=== PATIENT | female | born 1960 | race Caucasian/White ===

== ENCOUNTER 2017-04-24 20:32 | Emergency (ER) | payer MEDICAID, OTHER ==
[2017-04-24] MEDS ORDERED: HYDROmorphone 1 MG/ML Syringe IVPUSH ONE (21:23)
[2017-04-24] MEDS ORDERED: diphenhydrAMINE 50 MG/ML SDV IVPUSH ONE (21:24)
[2017-04-24] MEDS ORDERED: Sodium Chloride 0.9% 1,000 ML IV SCH (21:30)
[2017-04-24] MEDS ORDERED: Sodium Chloride 0.9% 10 ML Syringe FLUSH PRN (21:50)
[2017-04-24] MEDS ORDERED: Iopamidol 612 MG/ML 100 ML Bottle IV PRN (21:50)
[2017-04-24 22:30] VITALS: BP 102/56
--- NOTE | 2017-04-24 23:03 | EDM.PDOC ---
ED HPI GENERAL MEDICAL PROBLEM - General Chief Complaint: Flank Pain Stated Complaint: L RIB PAIN Time Seen by Provider: 04/24/17 21:16 Source of Information: Reports: Patient History Limitations: Reports: No Limitations - History of Present Illness INITIAL COMMENTS - FREE TEXT/NARRATIVE: History of present illness: [56-year-old female who works that he goes in the [employer] department bumped into something rather hard yesterday injuring her left upper quadrant of her abdomen and left lower rib cage. She is presenting with severe pain of the left upper quadrant and left lower with cage. Today she went to [place] because her father had a biopsy that she wondered be with him at. She notes that during the day every time she got up she felt lightheaded and just didn't feel right. Her appetite has not been good either. She is a smoker. She said no nausea vomiting diarrhea she's not noted any blood in her stools or her urine.] Review of systems: As per history of present illness and below otherwise all systems reviewed and negative. Past medical history: As per history of present illness and as reviewed below otherwise noncontributory. Surgical history: As per history of present illness and as reviewed below otherwise noncontributory. Social history: No reported history of drug or alcohol abuse. Family history: As per history of present illness and as reviewed below otherwise noncontributory. Physical exam: HEENT: Atraumatic, normocephalic, Lungs: Clear to auscultation, breath sounds equal bilaterally, chest nontender. Heart: S1S2, regular, negative for clicks, rubs, or JVD. Abdomen: She has tenderness to palpation in her left upper quadrant and also the left lower rib cage area. Bowel sounds are hypoactive. She is very slow to move and lay down and seems to be in a lot of pain. Extremities: Atraumatic, negative for cords or calf pain. Neurovascular unremarkable. Neuro: Awake, alert, oriented. Exam nonfocal. Diagnostics: [CBC complete metabolic panel UA were obtained as as well as a abdominal pelvic CT with IV contrast. My concern was her spleen and that study was completely negative including the bony elements of her lower rib cage that were seen.] Therapeutics: [She received IV fluids and IV Dilaudid] Impression: [Contusion of the left lower rib cage and left upper quadrant of her abdomen] Plan: [We'll send her out with [facility] for pain control and she will follow-up with her primary care provider. 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 A workers injury report will need to be filled out and filed but she doesn't have that with her.] Definitive disposition and diagnosis as appropriate pending reevaluation and review of above. left rib Pain Score (Numeric/FACES): 7 - Related Data Allergies Allergy/AdvReac Type Severity Reaction Status Date / Time venom-honey bee Allergy Severe Facial Verified 04/24/17 20:45 [bee venom (honey bee)] Swelling meperidine HCl [From Demerol] Allergy Unknown Hives Verified 04/24/17 20:45 Home Meds: Home Meds Albuterol [Proair HFA] 2 puff INH ASDIRECTED PRN 11/28/13 [History] Cyclobenzaprine [Flexeril] 10 mg PO TID PRN 07/25/14 [History] Omeprazole Magnesium [Prilosec Otc] 20 mg PO DAILY PRN 10/18/14 [History] tiZANidine [Zanaflex] 4 mg PO Q6H PRN 10/18/14 [History] EPINEPHrine [Epinephrine] 0.3 ml IM ONETIME PRN 02/24/15 [History] Lidocaine 5% [Lidoderm 5%] 3 patch TOP Q24H 02/24/15 [History] Naproxen Sodium [Aleve] 440 mg PO DAILY PRN 02/24/15 [History] Lisinopril 10 mg PO DAILY 07/18/15 [History] Polyethylene Glycol 3350 [MiraLAX] 1 dose PO ASDIRECTED 07/18/15 [History] atorvaSTATin [Lipitor] 40 mg PO BEDTIME 07/18/15 [History] Calcium Carb & Citrate/Vit D3 [Calcium + D3 ER Tablet] 1 tab PO DAILY 07/29/15 [ History] Diclofenac Sodium [Voltaren 1%] 1 applic TP QID 07/29/15 [History] Etodolac [Lodine] 500 mg PO BID 07/29/15 [History] Ibuprofen [Advil] 400 mg PO ASDIRECTED 07/29/15 [History] Past Medical History Cardiovascular History: Reports: Afib, Hypertension Respiratory History: Reports: Asthma, COPD, Pneumonia, Recurrent Gastrointestinal History: Reports: GERD, Irritable Bowel Syndrome [employer]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[employer] History: Reports: Fibroids, Musculoskeletal History: Reports: Arthritis, Back Pain, Chronic, Fibromyalgia, Osteoporosis Neurological History: Reports: Headaches, Chronic Psychiatric History: Reports: Anxiety, Depression, Mood Swings Dermatologic History: Reports: Benign Melanoma - Past Surgical History Cardiovascular Surgical History: Reports: Other (See Below) Other Cardiovascular Surgeries/Procedures: Angiogram 2014 GI Surgical History: Reports: Appendectomy, Cholecystectomy, Colonoscopy, Hernia , Abdominal, Other (See Below) Other GI Surgeries/Procedures: Abdominal mass under right rib 2014 removed Female Surgical History: Reports: Breast Biopsy, Salpingo-Oophorectomy, Tubal Ligation Social & Family History - Tobacco Use Smoking Status *Q: Current Every Day Smoker Years of Tobacco use: 30 Packs/Tins Daily: 0.5 Used Tobacco, but Quit: No Second Hand Smoke Exposure: No - Caffeine Use Caffeine Use: Reports: Soda - Alcohol Use Days Per Week of Alcohol Use: 0 - Recreational Drug Use Recreational Drug Use: No ED ROS GENERAL - Review of Systems Review Of Systems: ROS reveals no pertinent complaints other than HPI. ED EXAM, GI/ABD - Physical Exam Exam: See Below Course - Vital Signs Last Recorded V/S: Last Vital Signs Temp 36.4 C 04/24/17 22:29 Pulse 67 04/24/17 22:29 Resp 16 04/24/17 20:49 BP 102/56 L 04/24/17 22:29 Pulse Ox 98 04/24/17 22:29 - Orders/Labs/Meds Orders: Active Orders 24 hr Category Date Time Status Abdomen Pelvis w Cont [CT] Stat Exams 04/24/17 21:25 Taken Sodium Chloride 0.9% [Normal Saline] 1,000 ml Med 04/24/17 21:30 Active IV ASDIRECTED Sodium Chloride 0.9% [Saline Flush] Med 04/24/17 21:50 Active 10 ml FLUSH ONETIME PRN Medication Orders Sodium Chloride (Normal Saline) 1,000 mls @ 150 mls/hr IV ASDIRECTED MARCUS Last Admin: 04/24/17 21:55 Dose: 150 mls/hr Sodium Chloride (Saline Flush) 10 ml FLUSH ONETIME PRN PRN Reason: PER RADIOLOGY PROTOCOL Labs: Laboratory Tests 04/24/17 04/24/17 04/24/17 Range/Units 21:42 21:42 21:42 WBC 9.1 (4.5-11.0) K/uL RBC 4.93 (3.30-5.50) M/uL Hgb 15.1 H (12.0-15.0) g/dL Hct 44.2 (36.0-48.0) % MCV 90 (80-98) fL MCH 31 (27-31) pg MCHC 34 (32-36) % Plt Count 272 (150-400) K/uL Neut % (Auto) 45 (36-66) % Lymph % (Auto) 40 (24-44) % Morton % (Auto) 9 H (2-6) % Eos % (Auto) 5 H (2-4) % Baso % (Auto) 1 (0-1) % PT 10.6 (9.5-12.0) sec INR 0.99 (0.80-1.20) Sodium 143 (140-148) mmol/L Potassium 3.5 L (3.6-5.2) mmol/L Chloride 106 (100-108) mmol/L Carbon Dioxide 27 (21-32) mmol/L Anion Gap 13.5 (5.0-14.0) mmol/L BUN 9 (7-18) mg/dL Creatinine 0.8 (0.6-1.0) mg/dL Est Cr Clr Drug Dosing 68.61 mL/min Estimated GFR (MDRD) > 60 (>60) Glucose 90 (74-106) mg/dL Calcium 9.1 (8.5-10.1) mg/dL Total Bilirubin 0.2 D (0.2-1.0) mg/dL AST 20 (15-37) U/L ALT 21 (12-78) U/L Alkaline Phosphatase 146 H (46-116) U/L Total Protein 7.4 (6.4-8.2) g/dL Albumin 3.3 L (3.4-5.0) g/dL Globulin 4.1 H (2.3-3.5) g/dL Albumin/Globulin Ratio 0.8 L (1.2-2.2) Urine Color Urine Appearance Urine pH (4.5-8.0) Ur Specific [place] (1.008-1.030) Urine Protein (NEGATIVE) mg/dL Urine Glucose (UA) (NEGATIVE) mg/dL Urine Ketones (NEGATIVE) mg/dL Urine Occult Blood (NEGATIVE) Urine Nitrite (NEGATIVE) Urine Bilirubin (NEGATIVE) Urine Urobilinogen (NORMAL) mg/dL Ur Leukocyte Esterase (NEGATIVE) Urine RBC (0-5) Urine WBC (0-5) Ur Epithelial Cells Amorphous Sediment Urine Bacteria Urine Mucus 04/24/17 Range/Units 21:42 WBC (4.5-11.0) K/uL RBC (3.30-5.50) M/uL Hgb (12.0-15.0) g/dL Hct (36.0-48.0) % MCV (80-98) fL MCH (27-31) pg MCHC (32-36) % Plt Count (150-400) K/uL Neut % (Auto) (36-66) % Lymph % (Auto) (24-44) % Morton % (Auto) (2-6) % Eos % (Auto) (2-4) % Baso % (Auto) (0-1) % PT (9.5-12.0) sec INR (0.80-1.20) Sodium (140-148) mmol/L Potassium (3.6-5.2) mmol/L Chloride (100-108) mmol/L Carbon Dioxide (21-32) mmol/L Anion Gap (5.0-14.0) mmol/L BUN (7-18) mg/dL Creatinine (0.6-1.0) mg/dL Est Cr Clr Drug Dosing mL/min Estimated GFR (MDRD) (>60) Glucose (74-106) mg/dL Calcium (8.5-10.1) mg/dL Total Bilirubin (0.2-1.0) mg/dL AST (15-37) U/L ALT (12-78) U/L Alkaline Phosphatase (46-116) U/L Total Protein (6.4-8.2) g/dL Albumin (3.4-5.0) g/dL Globulin (2.3-3.5) g/dL Albumin/Globulin Ratio (1.2-2.2) Urine Color Yellow Urine Appearance Clear Urine pH 7.0 (4.5-8.0) Ur Specific [place] 1.010 (1.008-1.030) Urine Protein Negative (NEGATIVE) mg/dL Urine Glucose (UA) Normal (NEGATIVE) mg/dL Urine Ketones Negative (NEGATIVE) mg/dL Urine Occult Blood Negative (NEGATIVE) Urine Nitrite Negative (NEGATIVE) Urine Bilirubin Negative (NEGATIVE) Urine Urobilinogen Normal (NORMAL) mg/dL Ur Leukocyte Esterase Negative (NEGATIVE) Urine RBC 0-5 (0-5) Urine WBC 0-5 (0-5) Ur Epithelial Cells Few Amorphous Sediment Not seen Urine Bacteria Few Urine Mucus Not seen Meds: Medications Generic Name Dose Route Start Last Admin Trade Name Freq PRN Reason Stop Dose Admin Sodium Chloride 1,000 mls @ 150 mls/hr 04/24/17 21:30 04/24/17 21:55 Normal Saline IV 150 mls/hr ASDIRECTED MARCUS Administration Sodium Chloride 10 ml 04/24/17 21:50 Saline Flush FLUSH ONETIME PRN PER RADIOLOGY PROTOCOL Discontinued Medications Generic Name Dose Route Start Last Admin Trade Name Freq PRN Reason Stop Dose Admin Diphenhydramine HCl 25 mg 04/24/17 21:24 04/24/17 21:58 Benadryl IVPUSH 04/24/17 21:25 25 mg ONETIME ONE Administration Hydromorphone HCl 1 mg 04/24/17 21:23 04/24/17 22:00 Dilaudid IVPUSH 04/24/17 21:24 1 mg ONETIME ONE Administration Sodium Chloride 70 mls @ 3 mls/sec 04/24/17 21:50 Normal Saline IV 04/24/17 21:51 ONETIME ONE Iopamidol 82 ml 04/24/17 21:50 Isovue-300 (61%) IV 04/24/17 21:51 . DIRECTED PRN RADIOLOGY EXAM Departure - Departure Time of Disposition: 23:02 Disposition: Home, Self-Care 01 Condition: Good Clinical Impression: Contusion of rib on left side Qualifiers: Encounter type: initial encounter Qualified Code(s): S20.212A - Contusion of left front wall of thorax, initial encounter Contusion of abdominal wall, initial encounter Qualifiers: Encounter type: initial encounter Qualified Code(s): S30.1XXA - Contusion of abdominal wall, initial encounter - Discharge Information Forms: ED Department Discharge Additional Instructions: As we discussed follow-up with your employer tomorrow and report your injury and you'll more than likely have paperwork that needs to be filled out and if you can get into see a primary care doctor he can help you with that. - My Orders Last 24 Hours: My Active Orders 04/24/17 21:25 Abdomen Pelvis w Cont [CT] Stat 04/24/17 21:30 Sodium Chloride 0.9% [Normal Saline] 1,000 ml IV ASDIRECTED 04/24/17 21:50 Sodium Chloride 0.9% [Saline Flush] 10 ml FLUSH ONETIME PRN - Assessment/Plan Last 24 Hours: My Active Orders 04/24/17 21:25 Abdomen Pelvis w Cont [CT] Stat 04/24/17 21:30 Sodium Chloride 0.9% [Normal Saline] 1,000 ml IV ASDIRECTED 04/24/17 21:50 Sodium Chloride 0.9% [Saline Flush] 10 ml FLUSH ONETIME PRN
== END 2017-04-24 23:40 | disposition home or self-care (01) ==
LOC: JP.ED 20:32
DX: S20.212A Contusion of left front wall of thorax, initial encounter (principal); S30.1XXA Contusion of abdominal wall, initial encounter; I10 Essential (primary) hypertension; I48.91 Unspecified atrial fibrillation; J45.909 Unspecified asthma, uncomplicated; J44.9 Chronic obstructive pulmonary disease, unspecified; K21.9 Gastro-esophageal reflux disease without esophagitis; F41.9 Anxiety disorder, unspecified; F32.9 Major depressive disorder, single episode, unspecified; F17.210 Nicotine dependence, cigarettes, uncomplicated; Z98.51 Tubal ligation status; Z90.721 Acquired absence of ovaries, unilateral; Z79.899 Other long term (current) drug therapy; Z90.49 Acquired absence of other specified parts of digestive tract; Z88.5 Allergy status to narcotic agent; Z91.030 Bee allergy status; X58.XXXA Exposure to other specified factors, initial encounter; Z87.01 Personal history of pneumonia (recurrent)
CPT/HCPCS: 36415; 74177; 80053; 81001; 85025; 85610; 96374; 96375; 99284; J1170; J1200; J7030; J7040; J7050

== ENCOUNTER 2018-02-16 12:38 | Emergency (ER) | payer MEDICAID ==
[2018-02-16 12:53] VITALS: BP 150/102
--- NOTE | 2018-02-16 13:21 | EDM.PDOC ---
ED HPI GENERAL MEDICAL PROBLEM - General Chief Complaint: Eye Problems Stated Complaint: RIGHT EYE IS RED Time Seen by Provider: 02/16/18 13:00 Source of Information: Reports: Patient History Limitations: Reports: No Limitations - History of Present Illness INITIAL COMMENTS - FREE TEXT/NARRATIVE: Marimar presents today with complaints of sudden onset right eye irritation, itching, redness and purulent discharge this morning. She denies trauma, injury to the eye. Onset: Today, Sudden - Related Data Allergies Allergy/AdvReac Type Severity Reaction Status Date / Time venom-honey bee Allergy Severe Facial Verified 02/16/18 12:53 [bee venom (honey bee)] Swelling meperidine HCl [From Demerol] Allergy Unknown Hives Verified 02/16/18 12:53 adhesive tape Allergy Rash Verified 02/16/18 12:53 Home Meds: Home Meds Albuterol [Proair HFA] 2 puff INH ASDIRECTED PRN 11/28/13 [History] Cyclobenzaprine [Flexeril] 10 mg PO TID PRN 07/25/14 [History] Omeprazole Magnesium [Prilosec Otc] 20 mg PO DAILY 10/18/14 [History] tiZANidine [Zanaflex] 4 mg PO Q6H PRN 10/18/14 [History] EPINEPHrine [Epinephrine] 0.3 ml IM ONETIME PRN 02/24/15 [History] Naproxen Sodium [Aleve] 440 mg PO DAILY PRN 02/24/15 [History] Lisinopril 10 mg PO DAILY 07/18/15 [History] Polyethylene Glycol 3350 [MiraLAX] 1 dose PO ASDIRECTED 07/18/15 [History] atorvaSTATin [Lipitor] 40 mg PO BEDTIME 07/18/15 [History] Calcium Carb & Citrate/Vit D3 [Calcium + D3 ER Tablet] 1 tab PO DAILY 07/29/15 [ History] Diclofenac Sodium [Voltaren 1%] 1 applic TP QID 07/29/15 [History] Etodolac [Lodine] 500 mg PO BID 07/29/15 [History] Ibuprofen [Advil] 400 mg PO ASDIRECTED 07/29/15 [History] Past Medical History HEENT History: Reports: Cataract, Impaired Vision Cardiovascular History: Reports: Afib, Hypertension Respiratory History: Reports: Asthma, COPD, Pneumonia, Recurrent Gastrointestinal History: Reports: GERD, Irritable Bowel Syndrome 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: 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, Musculoskeletal History: Reports: Arthritis, Back Pain, Chronic, Fibromyalgia, Osteoporosis Neurological History: Reports: Headaches, Chronic Psychiatric History: Reports: Anxiety, Depression, Mood Swings Dermatologic History: Reports: Benign Melanoma - Past Surgical History Cardiovascular Surgical History: Reports: Other (See Below) Other Cardiovascular Surgeries/Procedures: Angiogram 2014 GI Surgical History: Reports: Appendectomy, Cholecystectomy, Colonoscopy, Hernia , Abdominal, Other (See Below) Other GI Surgeries/Procedures: Abdominal mass under right rib 2014 removed Female Surgical History: Reports: Breast Biopsy, Salpingo-Oophorectomy, Tubal Ligation Social & Family History - Tobacco Use Smoking Status *Q: Light Tobacco Smoker Years of Tobacco use: 40 Packs/Tins Daily: 0.4 - Caffeine Use Caffeine Use: Reports: Soda - Recreational Drug Use Recreational Drug Use: No ED ROS GENERAL - Review of Systems Review Of Systems: See Below Constitutional: Denies: Fever, Chills, Malaise, Weakness HEENT: Reports: Eye Discharge, Vision Change, Other (she reports blurry vision to right eye. ). Denies: Ear Discharge, Eye Pain, Rhinitis, Sinus Problem, Throat Pain, Vertigo Respiratory: Reports: No Symptoms Cardiovascular: Reports: No Symptoms Endocrine: Reports: No Symptoms Musculoskeletal: Reports: No Symptoms Skin: Denies: Dryness, Bruising, Pruritis, Rash, Erythema, Change in Color Neurological: Reports: No Symptoms Psychiatric: Reports: No Symptoms Hematologic/Lymphatic: Reports: No Symptoms Immunologic: Reports: No Symptoms ED EXAM GENERAL W FULL EYE - Physical Exam Exam: See Below Exam Limited By: No Limitations General Appearance: Alert, WD/WN, No Apparent Distress Eye Exam: Bilateral Eye: EOMI, Normal Inspection, PERRL Eyelids: Right: Normal Appearance, Lid Everted for Exam Conjunctiva & Sclera: Right: Conjunctival Edema, Discharge (Purulent ), Left: Normal Appearance Cornea Exam: Bilateral: Normal Appearance Extraocular Movements: Bilateral: Intact Pupils: Normal Accommodation Pupillary Size: Bilateral: 3 mm Pupillary Reaction: Bilateral: Brisk Anterior Chamber: Bilateral: Normal Appearance Posterior Chamber: Bilateral: Normal Funduscopic Ears: Normal External Exam, Normal Canal, Hearing Grossly Normal, Normal TMs Nose: Normal Inspection, Normal Mucosa, No Blood Throat/Mouth: Normal Inspection, Normal Lips, Normal Teeth, Normal Gums, Normal Oropharynx, Normal Voice, No Airway Compromise Head: Atraumatic, Normocephalic Neck: Normal Inspection, Supple, Non-Tender, Full Range of Motion. No: Lymphadenopathy (R), Lymphadenopathy (L) Respiratory/Chest: No Respiratory Distress, Lungs Clear, Normal Breath Sounds, No Accessory Muscle Use, Chest Non-Tender Cardiovascular: Normal Peripheral Pulses, Regular Rate, Rhythm, No Edema, No Murmur, No Rub Extremities: Normal Inspection, Normal Range of Motion, Non-Tender, No Pedal Edema, Normal Capillary Refill Neurological: Alert, Oriented, CN II-XII Intact, Normal Cognition, Normal Gait, No Motor/Sensory Deficits Psychiatric: Normal Affect, Normal Mood Skin Exam: Warm, Dry, Intact, Normal Color, No Rash Lymphatic: No Adenopathy Course - Vital Signs Last Recorded V/S: Last Vital Signs Temp 36.2 C 02/16/18 12:53 Pulse 90 02/16/18 12:53 Resp 16 02/16/18 12:53 BP 150/102 H 02/16/18 12:53 Pulse Ox 99 02/16/18 12:53 Departure - Departure Time of Disposition: 13:14 Disposition: Home, Self-Care 01 Condition: Good Clinical Impression: Bacterial conjunctivitis of right eye - Discharge Information Instructions: Bacterial Conjunctivitis, [id number] Referrals: PCP,None [Primary Care Provider] - Forms: ED Department Discharge, ED Return to Work/School Form Additional Instructions: You have been evaluated and treated for right eye bacterial conjunctivitis. Apply a thin ribbon of erythromycin ophthalmic 0.5% to the right lower eye lid four times a day for 7 days. You an also use warm pack to the right eye for comfort. Practice excellent hand hygiene to prevent spread of infection. No work today. 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 - Assessment/Plan Assessment:: Bacterial conjunctivitis Right eye Plan: Patient evaluated and treated for right eye bacterial conjunctivitis. Apply a thin ribbon of erythromycin ophthalmic 0.5% to the right lower eye lid four times a day for 7 days. She can also use warm pack to the right eye for comfort. Practice excellent hand hygiene to prevent spread of infection. No work today. 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
== END 2018-02-16 13:39 | disposition home or self-care (01) ==
LOC: JP.ED 12:38
DX: H10.9 Unspecified conjunctivitis (principal); F17.210 Nicotine dependence, cigarettes, uncomplicated; I10 Essential (primary) hypertension; I48.91 Unspecified atrial fibrillation; J44.9 Chronic obstructive pulmonary disease, unspecified; K21.9 Gastro-esophageal reflux disease without esophagitis; F41.9 Anxiety disorder, unspecified; F32.9 Major depressive disorder, single episode, unspecified; Z79.899 Other long term (current) drug therapy; Z91.030 Bee allergy status; Z91.09 Other allergy status, other than to drugs and biological substances; Z88.5 Allergy status to narcotic agent
CPT/HCPCS: 99283

== ENCOUNTER 2018-03-23 01:47 | Emergency (ER) | payer MEDICAID ==
[2018-03-23] MEDS ORDERED: Albuterol/Ipratropium 3.0-0.5 MG/3 ML Neb Soln NEB ONE (04:26)
--- NOTE | 2018-03-23 04:31 | EDM.PDOC ---
ED HPI GENERAL MEDICAL PROBLEM - General Chief Complaint: Respiratory Problem Stated Complaint: COUGH,BURNING IN CHEST,NAUSEA Time Seen by Provider: 03/23/18 04:15 Source of Information: Reports: Patient, Old Records, RN History Limitations: Reports: No Limitations - History of Present Illness INITIAL COMMENTS - FREE TEXT/NARRATIVE: 57 YO female smoker presents with a dry cough for about half a day. No fever. Some chest tightness. No benefit with her inhaler for asthma at home. No rhinorrhea. Onset Date: 03/22/18 Onset Time: 12:00 Duration: Hour(s):, Constant Location: Reports: Chest Quality: Reports: Dull Severity: Mild Improves with: Reports: None Worsens with: Reports: None Context: Reports: Other (smoker, asthma hx) Associated Symptoms: Reports: Cough, Fever/Chills (mild chills, no fever) Treatments PRICING SPECIALIST: Reports: Other (see below) (none) burning in chest Pain Score (Numeric/FACES): 8 - Related Data Allergies Allergy/AdvReac Type Severity Reaction Status Date / Time venom-honey bee Allergy Severe Facial Verified 03/23/18 04:18 [bee venom (honey bee)] Swelling meperidine HCl [From Demerol] Allergy Unknown Hives Verified 03/23/18 04:18 adhesive tape Allergy Rash Verified 03/23/18 04:18 Home Meds: Home Meds Albuterol [Proair HFA] 2 puff INH ASDIRECTED PRN 11/28/13 [History] Cyclobenzaprine [Flexeril] 10 mg PO TID PRN 07/25/14 [History] Omeprazole Magnesium [Prilosec Otc] 20 mg PO DAILY 10/18/14 [History] tiZANidine [Zanaflex] 4 mg PO Q6H PRN 10/18/14 [History] EPINEPHrine [Epinephrine] 0.3 ml IM ONETIME PRN 02/24/15 [History] Naproxen Sodium [Aleve] 440 mg PO DAILY PRN 02/24/15 [History] Lisinopril 10 mg PO DAILY 07/18/15 [History] Polyethylene Glycol 3350 [MiraLAX] 1 dose PO ASDIRECTED 07/18/15 [History] atorvaSTATin [Lipitor] 40 mg PO BEDTIME 07/18/15 [History] Calcium Carb & Citrate/Vit D3 [Calcium + D3 ER Tablet] 1 tab PO DAILY 07/29/15 [ History] Diclofenac Sodium [Voltaren 1%] 1 applic TP QID 07/29/15 [History] Etodolac [Lodine] 500 mg PO BID 07/29/15 [History] Ibuprofen [Advil] 400 mg PO ASDIRECTED 07/29/15 [History] Past Medical History HEENT History: Reports: Cataract, Impaired Vision Cardiovascular History: Reports: Afib, Hypertension Respiratory History: Reports: Asthma, COPD, Pneumonia, Recurrent Gastrointestinal History: Reports: GERD, Irritable Bowel Syndrome 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, Musculoskeletal History: Reports: Arthritis, Back Pain, Chronic, Fibromyalgia, Osteoporosis Neurological History: Reports: Headaches, Chronic Psychiatric History: Reports: Anxiety, Depression, Mood Swings Dermatologic History: Reports: Benign Melanoma - Past Surgical History Cardiovascular Surgical History: Reports: Other (See Below) Other Cardiovascular Surgeries/Procedures: Angiogram 2014 GI Surgical History: Reports: Appendectomy, Cholecystectomy, Colonoscopy, Hernia , Abdominal, Other (See Below) Other GI Surgeries/Procedures: Abdominal mass under right rib 2015 removed Female Surgical History: Reports: Breast Biopsy, Salpingo-Oophorectomy, Tubal Ligation Social & Family History - Caffeine Use Caffeine Use: Reports: Soda ED ROS GENERAL - Review of Systems Review Of Systems: See Below Constitutional: Reports: Chills. Denies: Fever HEENT: Reports: No Symptoms Respiratory: Reports: Cough. Denies: Shortness of Breath, Wheezing, Sputum, Hemoptysis Cardiovascular: Reports: No Symptoms Endocrine: Reports: No Symptoms GI/Abdominal: Reports: No Symptoms : Reports: No Symptoms Musculoskeletal: Reports: No Symptoms Skin: Reports: No Symptoms Neurological: Reports: No Symptoms ED EXAM, GENERAL - Physical Exam Exam: See Below Exam Limited By: No Limitations General Appearance: Alert, WD/WN, No Apparent Distress Eye Exam: Bilateral Eye: EOMI, Normal Inspection Ears: Normal External Exam, Normal Canal, Hearing Grossly Normal Ear Exam: Bilateral Ear: Auricle Normal, Canal Normal Nose: Normal Inspection, Normal Mucosa, No Blood Throat/Mouth: Normal Inspection, Normal Lips, Normal Oropharynx, Normal Voice, No Airway Compromise Head: Atraumatic, Normocephalic Neck: Normal Inspection, Supple Respiratory/Chest: No Respiratory Distress, Lungs Clear, Normal Breath Sounds, No Accessory Muscle Use Cardiovascular: Regular Rate, Rhythm, No Edema GI/Abdominal: Normal Bowel Sounds, Soft, Non-Tender Back Exam: Normal Inspection. No: CVA Tenderness (R), CVA Tenderness (L) Extremities: Normal Inspection, Normal Range of Motion, Non-Tender Neurological: Alert, Oriented, CN II-XII Intact, Normal Cognition Psychiatric: Normal Affect, Normal Mood Skin Exam: Warm, Dry, Intact, Normal Color, No Rash Lymphatic: No Adenopathy Course - Vital Signs Text/Narrative:: Partial benefit after neb tx. Last Recorded V/S: Last Vital Signs Temp 36.2 C 03/23/18 04:45 Pulse 89 03/23/18 04:45 Resp 16 03/23/18 04:45 BP 154/100 H 03/23/18 04:45 Pulse Ox 98 03/23/18 04:45 - Orders/Labs/Meds Orders: Active Orders 24 hr Category Date Time Status RT Aerosol Therapy [RC] ASDIRECTED Care 03/23/18 04:26 Active RT Peak Flow Measurement [RC] ASDIRECTED Care 03/23/18 04:26 Inactive Labs: Laboratory Tests 03/23/18 03/23/18 Range/Units 04:45 04:45 WBC 13.0 H (4.5-11.0) K/uL RBC 4.92 (3.30-5.50) M/uL Hgb 14.8 (12.0-15.0) g/dL Hct 43.7 (36.0-48.0) % MCV 89 (80-98) fL MCH 30 (27-31) pg MCHC 34 (32-36) % Plt Count 283 (150-400) K/uL C-Reactive Protein 1.17 H (0.0-0.3) mg/dL Meds: Medications Discontinued Medications Generic Name Dose Route Start Last Admin Trade Name Freq PRN Reason Stop Dose Admin Albuterol/Ipratropium 3 ml 03/23/18 04:26 03/23/18 04:44 Duoneb 3.0-0.5 Mg/3 Ml NEB 03/23/18 04:27 3 ml ONETIME ONE Administration Departure - Departure Time of Disposition: 05:19 Disposition: Home, Self-Care 01 Condition: Good Clinical Impression: Cough, Tobacco abuse - Discharge Information Referrals: PCP,None [Primary Care Provider] - Forms: ED Department Discharge - My Orders Last 24 Hours: My Active Orders 03/23/18 04:26 RT Aerosol Therapy [RC] ASDIRECTED RT Peak Flow Measurement [RC] ASDIRECTED - Assessment/Plan Last 24 Hours: My Active Orders 03/23/18 04:26 RT Aerosol Therapy [RC] ASDIRECTED RT Peak Flow Measurement [RC] ASDIRECTED
[2018-03-23 04:33] VITALS: BP 154/100
== END 2018-03-23 05:30 | disposition home or self-care (01) ==
LOC: JP.ED 01:47
DX: R05 Cough (principal); I48.91 Unspecified atrial fibrillation; I10 Essential (primary) hypertension; F17.200 Nicotine dependence, unspecified, uncomplicated; Z91.030 Bee allergy status; Z79.899 Other long term (current) drug therapy; Z87.01 Personal history of pneumonia (recurrent)
CPT/HCPCS: 36415; 85027; 86140; 94640; 99284; J7620

== ENCOUNTER 2018-11-15 17:31 | Emergency (ER) | payer MEDICAID ==
[2018-11-15 17:52] VITALS: BP 166/94
[2018-11-15] MEDS ORDERED: Bacitracin Oint 1 GM U/D Packet TOP ONE (18:10)
--- NOTE | 2018-11-15 18:44 | EDM.PDOC ---
ED HPI GENERAL MEDICAL PROBLEM - General Chief Complaint: Laceration Stated Complaint: CUT FINGER WASHING DISHES Time Seen by Provider: 11/15/18 18:00 Source of Information: Reports: Patient History Limitations: Reports: No Limitations - History of Present Illness INITIAL COMMENTS - FREE TEXT/NARRATIVE: 57-year-old female with a laceration on her right hand. She avulsed a circular area of full thickness skin about 2 1/2 cm in diameter over the knuckle/MP joint of the index finger on the dorsal surface of the hand. It is persistently bleeding, she did not bring in the piece of skin missing. No significant underlying structures are involved, she has full range of motion of the finger. Her tetanus is current. Onset: Sudden Duration: Hour(s): (1 hour ago) Location: Reports: Upper Extremity, Right Right Hand Pain Score (Numeric/FACES): 1 - Related Data Allergies Allergy/AdvReac Type Severity Reaction Status Date / Time venom-honey bee Allergy Severe Facial Verified 11/15/18 17:57 [bee venom (honey bee)] Swelling meperidine HCl [From Demerol] Allergy Unknown Hives Verified 11/15/18 17:57 adhesive tape Allergy Rash Verified 11/15/18 17:57 Home Meds: Home Meds Albuterol [Proair HFA] 2 puff INH ASDIRECTED PRN 11/28/13 [History] Cyclobenzaprine [Flexeril] 10 mg PO TID PRN 07/25/14 [History] Omeprazole Magnesium [Prilosec Otc] 20 mg PO DAILY 10/18/14 [History] tiZANidine [Zanaflex] 4 mg PO Q6H PRN 10/18/14 [History] EPINEPHrine [Epinephrine] 0.3 ml IM ONETIME PRN 02/24/15 [History] Naproxen Sodium [Aleve] 440 mg PO DAILY PRN 02/24/15 [History] Lisinopril 10 mg PO DAILY 07/18/15 [History] Polyethylene Glycol 3350 [MiraLAX] 1 dose PO ASDIRECTED 07/18/15 [History] atorvaSTATin [Lipitor] 40 mg PO BEDTIME 07/18/15 [History] Calcium Carb & Citrate/Vit D3 [Calcium + D3 ER Tablet] 1 tab PO DAILY 07/29/15 [ History] Diclofenac Sodium [Voltaren 1%] 1 applic TP QID 07/29/15 [History] Etodolac [Lodine] 500 mg PO BID 07/29/15 [History] Ibuprofen [Advil] 400 mg PO ASDIRECTED 07/29/15 [History] Past Medical History HEENT History: Reports: Cataract, Impaired Vision Cardiovascular History: Reports: Afib, Hypertension Respiratory History: Reports: Asthma, COPD, Pneumonia, Recurrent Gastrointestinal History: Reports: GERD, Irritable Bowel Syndrome 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: Reports: Fibroids, Musculoskeletal History: Reports: Arthritis, Back Pain, Chronic, Fibromyalgia, Osteoporosis Neurological History: Reports: Headaches, Chronic Psychiatric History: Reports: Anxiety, Depression, Mood Swings Dermatologic History: Reports: Benign Melanoma - Infectious Disease History Infectious Disease History: Reports: Chicken Pox, Shingles - Past Surgical History Cardiovascular Surgical History: Reports: Other (See Below) Other Cardiovascular Surgeries/Procedures: Angiogram 2014 GI Surgical History: Reports: Appendectomy, Cholecystectomy, Colonoscopy, Hernia , Abdominal, Other (See Below) Other GI Surgeries/Procedures: Abdominal mass under right rib 2014 removed Female Surgical History: Reports: Breast Biopsy, Salpingo-Oophorectomy, Tubal Ligation Social & Family History - Tobacco Use Smoking Status *Q: Current Every Day Smoker Years of Tobacco use: 30 Packs/Tins Daily: 0.5 Second Hand Smoke Exposure: No - Caffeine Use Caffeine Use: Reports: Coffee, Soda Other Caffeine Use: 2 bottles pop daily and 2 cups coffee - Recreational Drug Use Recreational Drug Use: No ED ROS GENERAL - Review of Systems Review Of Systems: See Below Constitutional: Denies: Fever Respiratory: Denies: Shortness of Breath GI/Abdominal: Denies: Nausea, Vomiting Neurological: Denies: Headache Psychiatric: Reports: No Symptoms ED EXAM, SKIN/RASH Exam: See Below Exam Limited By: No Limitations General Appearance: Alert, No Apparent Distress Respiratory/Chest: No Respiratory Distress (a) Extremities: Other (Remainder of exam is limited to the right hand. The patient has a 2 x 2.5 cm evulsed laceration through the subcutaneous tissue on the dorsal aspect of the right hand over the MP joint of the index finger. Distal CMS is intact) Course - Vital Signs Last Recorded V/S: Last Vital Signs Temp 97.0 F 11/15/18 17:57 Pulse 66 11/15/18 17:57 Resp 16 11/15/18 17:57 BP 166/94 H 11/15/18 17:57 Pulse Ox 100 11/15/18 17:57 - Orders/Labs/Meds Meds: Medications Discontinued Medications Generic Name Dose Route Start Last Admin Trade Name John PRN Reason Stop Dose Admin Bacitracin 1 dose 11/15/18 18:10 11/15/18 18:23 Bacitracin Oint 1 Gm TOP 11/15/18 18:11 1 dose ONETIME ONE Administration Lidocaine HCl 5 ml 11/15/18 18:10 11/15/18 18:23 Xylocaine-Mpf 1% INJECT 11/15/18 18:11 5 ml ONETIME ONE Administration - Re-Assessments/Exams Free Text/Narrative Re-Assessment/Exam: 11/15/18 18:42 Because of the circular nature of the laceration and the depth through the subcutaneous tissue, significant undermining was needed as well as extension of the laceration into an elliptical shape. After the wound was prepped, 7 4-0 Ethilon sutures were used to close the wound. She'll need 2 full weeks of sutures. I'm also going to place her on cephalexin 500 mg twice daily. Return sooner if any concerns. Gradually increase range of motion as tolerated. Departure - Departure Time of Disposition: 19:13 Disposition: Home, Self-Care 01 Condition: Good Clinical Impression: Laceration of hand Qualifiers: Encounter type: initial encounter Foreign body presence: without foreign body Laterality: right Qualified Code(s): S61.411A - Laceration without foreign body of right hand, initial encounter - Discharge Information Instructions: Laceration Care, Adult Referrals: Betsy Chun PA-C [Primary Care Provider] - Forms: ED Department Discharge Care Plan Goals: Keep wound covered and clean while healing, and gently increased range of motion of the hand as tolerated. Take antibiotic twice daily, and recheck in 2 weeks on the for suture removal. Recheck sooner if concerns of infection or not healing satisfactorily.
== END 2018-11-15 19:13 | disposition home or self-care (01) ==
LOC: JP.ED 17:31
DX: S61.210A Laceration without foreign body of right index finger without damage to nail, initial encounter (principal); I10 Essential (primary) hypertension; I48.91 Unspecified atrial fibrillation; K21.9 Gastro-esophageal reflux disease without esophagitis; F41.9 Anxiety disorder, unspecified; F32.9 Major depressive disorder, single episode, unspecified; F17.210 Nicotine dependence, cigarettes, uncomplicated; Z91.030 Bee allergy status; Z88.5 Allergy status to narcotic agent; Z91.09 Other allergy status, other than to drugs and biological substances; Z79.899 Other long term (current) drug therapy; W25.XXXA Contact with sharp glass, initial encounter; Y93.G1 Activity, food preparation and clean up
CPT/HCPCS: 12001; 99283-25

== ENCOUNTER 2018-11-27 08:33 | Emergency (ER) | payer MEDICAID ==
--- NOTE | 2018-11-27 08:53 | EDM.PDOC ---
ED HPI GENERAL MEDICAL PROBLEM - General Stated Complaint: SUTURE REMOVAL Time Seen by Provider: 11/27/18 08:40 Source of Information: Reports: Patient History Limitations: Reports: No Limitations - History of Present Illness INITIAL COMMENTS - FREE TEXT/NARRATIVE: 57-year-old female in for suture removal of a laceration on her right hand. They were placed 2 weeks ago. She has not had any problems or evidence of infection. - Related Data Allergies Allergy/AdvReac Type Severity Reaction Status Date / Time venom-honey bee Allergy Severe Facial Verified 11/27/18 08:59 [bee venom (honey bee)] Swelling meperidine HCl [From Demerol] Allergy Unknown Hives Verified 11/27/18 08:59 adhesive tape Allergy Rash Verified 11/27/18 08:59 Home Meds: Home Meds Albuterol [Proair HFA] 2 puff INH ASDIRECTED PRN 11/28/13 [History] Cyclobenzaprine [Flexeril] 10 mg PO TID PRN 07/25/14 [History] Omeprazole Magnesium [Prilosec Otc] 20 mg PO DAILY 10/18/14 [History] tiZANidine [Zanaflex] 4 mg PO Q6H PRN 10/18/14 [History] EPINEPHrine [Epinephrine] 0.3 ml IM ONETIME PRN 02/24/15 [History] Naproxen Sodium [Aleve] 440 mg PO DAILY PRN 02/24/15 [History] Lisinopril 10 mg PO DAILY 07/18/15 [History] Polyethylene Glycol 3350 [MiraLAX] 1 dose PO ASDIRECTED 07/18/15 [History] atorvaSTATin [Lipitor] 40 mg PO BEDTIME 07/18/15 [History] Calcium Carb & Citrate/Vit D3 [Calcium + D3 ER Tablet] 1 tab PO DAILY 07/29/15 [ History] Diclofenac Sodium [Voltaren 1%] 1 applic TP QID 07/29/15 [History] Etodolac [Lodine] 500 mg PO BID 07/29/15 [History] Ibuprofen [Advil] 400 mg PO ASDIRECTED 07/29/15 [History] Past Medical History HEENT History: Reports: Cataract, Impaired Vision Cardiovascular History: Reports: Afib, Hypertension Respiratory History: Reports: Asthma, COPD, Pneumonia, Recurrent Gastrointestinal History: Reports: GERD, Irritable Bowel Syndrome 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: Fibroids, Musculoskeletal History: Reports: Arthritis, Back Pain, Chronic, Fibromyalgia, Osteoporosis Neurological History: Reports: Headaches, Chronic Psychiatric History: Reports: Anxiety, Depression, Mood Swings Dermatologic History: Reports: Benign Melanoma - Infectious Disease History Infectious Disease History: Reports: Chicken Pox, Shingles - Past Surgical History Cardiovascular Surgical History: Reports: Other (See Below) Other Cardiovascular Surgeries/Procedures: Angiogram 2014 GI Surgical History: Reports: Appendectomy, Cholecystectomy, Colonoscopy, Hernia , Abdominal, Other (See Below) Other GI Surgeries/Procedures: Abdominal mass under right rib 2015 removed Female Surgical History: Reports: Breast Biopsy, Salpingo-Oophorectomy, Tubal Ligation Social & Family History - Caffeine Use Caffeine Use: Reports: Coffee, Soda Other Caffeine Use: 2 bottles pop daily and 2 cups coffee ED ROS GENERAL - Review of Systems Review Of Systems: See Below Constitutional: Denies: Fever Respiratory: Denies: Shortness of Breath GI/Abdominal: Denies: Nausea, Vomiting Skin: Denies: Erythema ED EXAM, SKIN/RASH Exam: See Below Exam Limited By: No Limitations General Appearance: Alert, No Apparent Distress Respiratory/Chest: No Respiratory Distress Extremities: Other (Transverse laceration on the right hand appears to be healing very well. No drainage, erythema or swelling.) Course - Vital Signs Last Recorded V/S: Last Vital Signs Temp 95 F L 11/27/18 08:57 Pulse 82 11/27/18 08:57 Resp 16 11/27/18 08:57 BP 113/86 11/27/18 08:57 Pulse Ox 97 11/27/18 08:57 - Re-Assessments/Exams Free Text/Narrative Re-Assessment/Exam: 11/27/18 08:52 Sutures were removed, and a 6 mm Steri-Strip was placed across the wound because of the initial tension and type of laceration. Departure - Departure Time of Disposition: 09:18 Disposition: Home, Self-Care 01 Condition: Good Clinical Impression: Visit for suture removal - Discharge Information Instructions: Suture Removal, Care After Referrals: PCP,None [Primary Care Provider] - Forms: ED Department Discharge Care Plan Goals: Keep wound clean while healing, and recheck at any time if concerns of infection or not healing satisfactorily.
[2018-11-27 08:59] VITALS: BP 113/86
== END 2018-11-27 09:18 | disposition home or self-care (01) ==
LOC: JP.ED 08:33
DX: S61.210D Laceration without foreign body of right index finger without damage to nail, subsequent encounter (principal); I48.91 Unspecified atrial fibrillation; I10 Essential (primary) hypertension; J44.9 Chronic obstructive pulmonary disease, unspecified; F41.9 Anxiety disorder, unspecified; F32.9 Major depressive disorder, single episode, unspecified; W25.XXXD Contact with sharp glass, subsequent encounter; Z91.030 Bee allergy status; Z79.899 Other long term (current) drug therapy
CPT/HCPCS: 99281

== ENCOUNTER 2020-04-01 05:29 | Day surgery (SDC) | payer MEDICAID ==
[2020-04-01] MEDS ORDERED: Dextrose 5%-Lactated Ringers 1,000 ML IV SCH (06:00)
[2020-04-01] MEDS ORDERED: Propofol 200 MG/20 ML SDV ONE (06:53)
[2020-04-01] MEDS ORDERED: Midazolam 1 MG/ML 2 ML SDV ONE (06:54)
[2020-04-01] MEDS ORDERED: fentaNYL 100 MCG/2 ML SDV ONE (06:54)
[2020-04-01 09:47] VITALS: BP 119/80; PULSE 58
--- NOTE | 2020-04-03 13:34 | OR ---
DATE OF PROCEDURE: 04/01/2020 SURGEON: Gold Chavez MD PREOPERATIVE DIAGNOSIS: Persistent loose stools/diarrhea. POSTOPERATIVE DIAGNOSIS: Persistent loose stools/diarrhea, with normal-appearing colonoscopic examination. OPERATIVE PROCEDURE: Flexible colonoscopy with: 1. Collection of stool for microbiologic workup ([id number]). 2. Random colorectal biopsies to rule out microscopic colitis ([id number]). ANESTHESIA: IV sedation. INDICATION FOR PROCEDURE: A 59-year-old female presenting with roughly 2 months history of frequent loose stools and/or diarrhea. Workup thus far has been negative. Plan is to proceed with colonoscopy. At a minimum, we will obtain followup of the microbiologic workup of the stool and if no specific abnormalities random colorectal biopsies to rule out microscopic colitis. Potential risks including bleeding and perforation were discussed, and the patient wishes to proceed. DETAILS OF PROCEDURE: The patient was taken to the operating room and placed in a left lateral decubitus position. IV sedation was administered, after which the initial digital rectal exam was performed and was unremarkable. Colonoscope was passed into the rectum, with retroflexion revealing uncomplicated hemorrhoidal columns. Scope was eventually passed to the level of the cecum. To that level at most, there was some very little vague redness or edema of the colorectal mucosa. It would be a stretch to say that this was definitely abnormal. There was no blood or bleeding noted of diverticula and no areas of polyps or other signs of neoplasia, and again of no concrete gross evidence of inflammation of the colorectal mucosa to this level, but stool was then collected and sent for full microbiologic workup. Following this, multiple random colorectal biopsies from the cecum down through the rectum were obtained and sent for histologic evaluation. Minimal bleeding from the biopsy sites was seen and the procedure was then concluded. At this point, we will not offer any medical management. She will be set up to see Betsy Chun PA-C in [facility] in 7 to 10 days. We will monitor the microbiology and pathology report in the interim should something definitive come back that might allow us to initiate treatment sooner. Gold Chavez MD /[id number]
== END 2020-04-01 10:02 | disposition home or self-care (01) ==
LOC: JP.SDS 05:29
PROVIDERS: ATTEND Surgery
DX: K52.9 Noninfective gastroenteritis and colitis, unspecified (principal); K64.9 Unspecified hemorrhoids; D72.820 Lymphocytosis (symptomatic); I10 Essential (primary) hypertension; J44.9 Chronic obstructive pulmonary disease, unspecified; F17.200 Nicotine dependence, unspecified, uncomplicated
CPT/HCPCS: 45380; 87046; 87177; 87209; 87493; 87899; 89055; J2250; J2704; J3010; J7121; 88305

== ENCOUNTER 2020-04-15 14:08 | Observation (INO) | payer MEDICAID ==
--- NOTE | 2020-04-15 14:28 | EDM.PDOC ---
ED HPI GENERAL MEDICAL PROBLEM - General Chief Complaint: Abdominal Pain Stated Complaint: [facility] Time Seen by Provider: 04/15/20 14:23 Source of Information: Reports: Patient History Limitations: Reports: No Limitations - History of Present Illness INITIAL COMMENTS - FREE TEXT/NARRATIVE: pt has been dealing with severe diarrhea. She had a colonoscopy and a biopsy wh ich showed lymphcytic colitis. She has been put on predisone and she is awaiting the preautherazation on her other med. for the diarrhea. Onset: Gradual, Other (pt has been running a low k and has been getting infusions at the clinic. ) Duration: Hour(s): Location: Reports: Abdomen Associated Symptoms: Reports: Other ( history of marked diarrhea. ) Left Shoulder Pain Score (Numeric/FACES): 2 Jaw Pain Score (Numeric/FACES): 1 Lower Abdomen Pain Score (Numeric/FACES): 0 - Related Data Allergies Allergy/AdvReac Type Severity Reaction Status Date / Time venom-honey bee Allergy Severe Facial Verified 04/15/20 14:11 [bee venom (honey bee)] Swelling meperidine HCl [From Demerol] Allergy Unknown Hives Verified 04/15/20 14:11 adhesive tape Allergy Rash Verified 04/15/20 14:11 Home Meds: Home Meds Albuterol [Proair HFA] 1 - 2 puff INH Q4H PRN 11/28/13 [History] Cyclobenzaprine [Flexeril] 10 mg PO TID PRN 07/25/14 [History] EPINEPHrine [Epinephrine] 0.3 ml IM ONETIME PRN 02/24/15 [History] atorvaSTATin [Lipitor] 80 mg PO BEDTIME 07/18/15 [History] Diclofenac Sodium [Voltaren 1% Gel] 1 applic TP QID 07/29/15 [History] Aspirin [Halfprin] 81 mg PO DAILY 03/30/20 [History] Budesonide/Formoterol [Symbicort 80-4.5 MCG] 2 puff INH BID 03/30/20 [History] Metoprolol Tartrate [Lopressor] 25 mg PO Q12HR 03/30/20 [History] Nicotine [Nicoderm CQ] 14 mg TD DAILY 03/30/20 [History] Topiramate [Topamax] 50 mg PO BID 03/30/20 [History] Budesonide [Budesonide EC] 3 tab PO ASDIRECTED 04/15/20 [History] Cholestyramine (With Sugar) [Questran Powder] 4 gm PO BID 04/15/20 [History] Mirtazapine [Remeron] 15 mg PO BEDTIME 04/15/20 [History] predniSONE [Prednisone] 20 mg PO ASDIRECTED 04/15/20 [History] Potassium Chloride 20 meq PO BID #120 cap.er 04/16/20 [Rx] Past Medical History HEENT History: Reports: Cataract, Impaired Vision Cardiovascular History: Reports: Afib, Hypertension Respiratory History: Reports: Asthma, COPD, Pneumonia, Recurrent Gastrointestinal History: Reports: Chronic Diarrhea, GERD, Irritable Bowel Syndrome, Other (See Below) Genitourinary History: Reports: None [employer]EMAKER History: Reports: Fibroids, Musculoskeletal History: Reports: Arthritis, Back Pain, Chronic, Fibromyalgia, Osteoporosis Neurological History: Reports: Headaches, Chronic Psychiatric History: Reports: Anxiety, Depression, Mood Swings Dermatologic History: Reports: Benign Melanoma - Infectious Disease History Infectious Disease History: Reports: Chicken Pox, Shingles - Past Surgical History Head Surgeries/Procedures: Reports: None HEENT Surgical History: Reports: None Cardiovascular Surgical History: Reports: Other (See Below) Other Cardiovascular Surgeries/Procedures: Angiogram 2014 Respiratory Surgical History: Reports: None GI Surgical History: Reports: Appendectomy, Cholecystectomy, Colonoscopy, Hernia, Abdominal, Other (See Below) Other GI Surgeries/Procedures: Abdominal mass under right rib 2014 removed Female Surgical History: Reports: Breast Biopsy, Salpingo-Oophorectomy, Tubal Ligation Neurological Surgical History: Reports: None Musculoskeletal Surgical History: Reports: None Dermatological Surgical History: Reports: None Social & Family History - Tobacco Use Smoking Status *Q: Current Every Day Smoker Years of Tobacco use: 45 Packs/Tins Daily: 0.5 Used Tobacco, but Quit: No Second Hand Smoke Exposure: No - Caffeine Use Caffeine Use: Reports: Coffee, Soda Other Caffeine Use: 2 bottles pop daily and 2 cups coffee - Recreational Drug Use Recreational Drug Use: No ED ROS GENERAL - Review of Systems Review Of Systems: See Below Constitutional: Reports: Weakness, Weight Loss HEENT: Reports: No Symptoms Respiratory: Reports: No Symptoms Cardiovascular: Reports: Other (pt is having left shoulder pain. She is not actually having chest pain. ) Endocrine: Reports: No Symptoms GI/Abdominal: Reports: Abdominal Pain, Other (pt is having rt mid abdomanal pain and feels tender to palpate. ) : Reports: No Symptoms Musculoskeletal: Reports: No Symptoms Skin: Reports: No Symptoms Neurological: Reports: No Symptoms Psychiatric: Reports: Anxiety ED EXAM, GI/ABD - Physical Exam Exam: See Below Text/Narrative:: pt had severe pain in the mid abdoman. This pain last for 2 hours. She was very nauseated. She has a history of a lymphocytic colitis. Exam Limited By: No Limitations General Appearance: Alert, Anxious, Severe Distress, Other (pt did develop some chest and left shoulder pain. ) Ears: Normal TMs Nose: Normal Inspection Throat/Mouth: Normal Inspection Head: Atraumatic Neck: Normal Inspection Respiratory/Chest: No Respiratory Distress Cardiovascular: Regular Rate, Rhythm, Tachycardia GI/Abdominal Exam: Tender, Other (pt has tenderness in the rt periumbilical area. She has no masses. ) (Female) Exam: Deferred Rectal (Female) Exam: Deferred Back Exam: Normal Inspection Extremities: Normal Inspection Neurological: Alert, Oriented, Normal Cognition Psychiatric: Anxious Course - Vital Signs Last Recorded V/S: Last Vital Signs Temp 35.6 C L 04/16/20 08:00 Pulse 55 L 04/16/20 09:06 Resp 18 04/16/20 08:00 BP 121/67 04/16/20 09:06 Pulse Ox 99 04/16/20 08:00 - Orders/Labs/Meds Labs: Laboratory Tests 04/15/20 04/15/20 04/15/20 Range/Units 14:26 14:26 14:26 WBC 16.1 H (4.5-11.0) K/uL RBC 4.27 (3.30-5.50) M/uL Hgb 13.0 (12.0-15.0) g/dL Hct 38.6 (36.0-48.0) % MCV 90 (80-98) fL MCH 30 (27-31) pg MCHC 34 (32-36) % Plt Count 319 (150-400) K/uL Neut % (Auto) 71 H (36-66) % Lymph % (Auto) 20 L (24-44) % [place] % (Auto) 9 H (2-6) % Eos % (Auto) 0 L (2-4) % Baso % (Auto) 0 (0-1) % Sodium 150 H (140-148) mmol/L Potassium 2.3 L* (3.6-5.2) mmol/L Chloride 111 H (100-108) mmol/L Carbon Dioxide 30 (21-32) mmol/L Anion Gap 11.3 (5.0-14.0) mmol/L BUN 10 (7-18) mg/dL Creatinine 0.8 (0.6-1.0) mg/dL Est Cr Clr Drug Dosing 53.79 mL/min Estimated GFR (MDRD) > 60 (>60) Glucose 87 (74-106) mg/dL Calcium 9.2 (8.5-10.1) mg/dL Total Bilirubin 0.2 (0.2-1.0) mg/dL AST 92 H D (15-37) U/L ALT 50 D (12-78) U/L Alkaline Phosphatase 109 (46-116) U/L Troponin I 0.018 (0.000-0.056) ng/mL C-Reactive Protein 0.50 H (0.0-0.3) mg/dL Total Protein 6.6 (6.4-8.2) g/dL Albumin 3.0 L (3.4-5.0) g/dL Globulin 3.6 H (2.3-3.5) g/dL Albumin/Globulin Ratio 0.8 L (1.2-2.2) Lipase 288 (73-393) U/L Urine Color (YELLOW) Urine Appearance (CLEAR) Urine pH (5.0-8.0) Ur Specific [place] (1.008-1.030) Urine Protein (NEGATIVE) mg/dL Urine Glucose (UA) (NEGATIVE) mg/dL Urine Ketones (NEGATIVE) mg/dL Urine Occult Blood (NEGATIVE) Urine Nitrite (NEGATIVE) Urine Bilirubin (NEGATIVE) Urine Urobilinogen (0.2-1.0) EU/dL Ur Leukocyte Esterase (NEGATIVE) Urine RBC (0-5) Urine WBC (0-5) Ur Epithelial Cells Amorphous Sediment Urine Bacteria Urine Mucus 04/15/20 Range/Units 15:00 WBC (4.5-11.0) K/uL RBC (3.30-5.50) M/uL Hgb (12.0-15.0) g/dL Hct (36.0-48.0) % MCV (80-98) fL MCH (27-31) pg MCHC (32-36) % Plt Count (150-400) K/uL Neut % (Auto) (36-66) % Lymph % (Auto) (24-44) % [place] % (Auto) (2-6) % Eos % (Auto) (2-4) % Baso % (Auto) (0-1) % Sodium (140-148) mmol/L Potassium (3.6-5.2) mmol/L Chloride (100-108) mmol/L Carbon Dioxide (21-32) mmol/L Anion Gap (5.0-14.0) mmol/L BUN (7-18) mg/dL Creatinine (0.6-1.0) mg/dL Est Cr Clr Drug Dosing mL/min Estimated GFR (MDRD) (>60) Glucose (74-106) mg/dL Calcium (8.5-10.1) mg/dL Total Bilirubin (0.2-1.0) mg/dL AST (15-37) U/L ALT (12-78) U/L Alkaline Phosphatase (46-116) U/L Troponin I (0.000-0.056) ng/mL C-Reactive Protein (0.0-0.3) mg/dL Total Protein (6.4-8.2) g/dL Albumin (3.4-5.0) g/dL Globulin (2.3-3.5) g/dL Albumin/Globulin Ratio (1.2-2.2) Lipase (73-393) U/L Urine Color Yellow (YELLOW) Urine Appearance Clear (CLEAR) Urine pH 7.5 (5.0-8.0) Ur Specific [place] 1.020 (1.008-1.030) Urine Protein Negative (NEGATIVE) mg/dL Urine Glucose (UA) Negative (NEGATIVE) mg/dL Urine Ketones Negative (NEGATIVE) mg/dL Urine Occult Blood Trace-intact H (NEGATIVE) Urine Nitrite Negative (NEGATIVE) Urine Bilirubin Negative (NEGATIVE) Urine Urobilinogen 0.2 (0.2-1.0) EU/dL Ur Leukocyte Esterase Trace H (NEGATIVE) Urine RBC 0-5 (0-5) Urine WBC 0-5 (0-5) Ur Epithelial Cells Rare Amorphous Sediment Not seen Urine Bacteria Not seen Urine Mucus Not seen Meds: Medications Discontinued Medications Generic Name Dose Route Start Last Admin Trade Name Freq PRN Reason Stop Dose Admin Acetaminophen 650 mg 04/15/20 18:31 04/16/20 03:16 Tylenol PO 650 mg Q4H PRN Administration Pain (Mild 1-3)/fever Albuterol 0 gm 04/15/20 18:31 Ventolin Hfa INH Q4H PRN Wheezing Aspirin 81 mg 04/16/20 09:00 04/16/20 09:07 Halfprin PO 81 mg DAILY MARCUS Administration Atorvastatin Calcium 80 mg 04/15/20 21:00 04/15/20 20:33 Lipitor PO 80 mg BEDTIME MARCUS Administration Cholestyramine Resin 4 gm 04/16/20 08:00 04/16/20 09:10 Cholestyramine Packet PO 4 gm BIDMEALS MARCUS Administration Sodium Chloride 1,000 mls @ 999 mls/hr 04/15/20 15:00 04/15/20 15:48 Normal Saline IV 999 mls/hr ASDIRECTED MARCUS Administration Sodium Chloride 1,000 mls @ 999 mls/hr 04/15/20 15:15 Normal Saline IV ASDIRECTED MARCUS Potassium Chloride 20 meq/ 100 mls @ 50 mls/hr 04/15/20 15:05 04/15/20 20:32 Premix IV 04/15/20 17:04 50 mls/hr ONETIME ONE Administration Sodium Chloride 80 mls @ 3 mls/sec 04/15/20 15:15 04/15/20 15:39 Normal Saline IV 3 mls/sec ASDIRECTED MARCUS Administration Potassium Chloride 100 mls @ 50 mls/hr 04/15/20 18:00 04/15/20 20:34 Kcl 20 Meq In Water 100 Ml IV 04/15/20 21:59 Not Given Q2H MARCUS Sodium Chloride 1,000 mls @ 125 mls/hr 04/15/20 18:31 04/16/20 10:04 Normal Saline IV 125 mls/hr ASDIRECTED MARCUS Administration Potassium Chloride 20 meq/ 100 mls @ 50 mls/hr 04/15/20 22:38 04/15/20 23:08 Premix IV 04/16/20 00:37 50 mls/hr ONETIME ONE Administration Potassium Chloride 20 meq/ 100 mls @ 50 mls/hr 04/15/20 22:38 04/16/20 01:51 Premix IV 04/16/20 00:37 Not Given ONETIME ONE Potassium Chloride 20 meq/ 100 mls @ 50 mls/hr 04/16/20 01:16 04/16/20 01:53 Premix IV 04/16/20 03:14 50 mls/hr ONETIME ONE Administration Iopamidol 100 ml 04/15/20 15:15 04/15/20 15:40 Isovue-300 (61%) IV 66 ml . DIRECTED MARCUS Administration Lidocaine HCl 5 ml 04/16/20 01:32 04/16/20 01:54 Xylocaine-Mpf 1% INJECT 04/16/20 01:33 5 ml ONETIME ONE Administration Metoprolol Tartrate 25 mg 04/15/20 21:00 04/16/20 09:06 Lopressor PO 25 mg BID MARCUS Administration Mirtazapine 15 mg 04/15/20 21:00 04/15/20 20:33 Remeron PO 15 mg BEDTIME MARCUS Administration Nicotine 14 mg 04/16/20 09:00 04/16/20 09:07 Habitrol TRDERM 14 mg DAILY MARCUS Administration Non-Formulary Medication 3 tab 04/15/20 18:31 Budesonide [Budesonide Ec] PO ASDIRECTED MARCUS Ondansetron HCl 4 mg 04/15/20 18:31 Zofran IV Q4H PRN Nausea/Vomiting Potassium Chloride 40 meq 04/15/20 17:32 04/15/20 17:50 Klor-Con M20 PO 04/15/20 17:33 40 meq ONETIME ONE Administration Potassium Chloride 40 meq 04/15/20 22:36 04/15/20 23:08 Klor-Con M20 PO 04/15/20 22:37 40 meq ONETIME ONE Administration Prednisone 40 mg 04/15/20 18:31 04/16/20 09:07 Prednisone PO 40 mg DAILY MARCUS Administration Fluticasone/Salmeterol 1 puff 04/15/20 21:00 04/15/20 23:09 Fluticasone-Salmeterol 113-14 Mcg Powder Inh INH Not Given BID MARCUS Fluticasone/Salmeterol 1 puff 04/16/20 07:30 04/16/20 08:35 Fluticasone-Salmeterol 113-14 Mcg Powder Inh INH Not Given BIDRT MARCUS Sodium Chloride 10 ml 04/15/20 15:13 04/15/20 15:39 Saline Flush FLUSH 10 ml ASDIRECTED PRN Administration Keep Vein Open Sodium Chloride 10 ml 04/15/20 18:31 Saline Flush FLUSH ASDIRECTED PRN Keep Vein Open Topiramate 50 mg 04/15/20 21:00 04/16/20 09:07 Topamax PO 50 mg BID MARCUS Administration - Re-Assessments/Exams Free Text/Narrative Re-Assessment/Exam: 04/15/20 17:39 cat scan shows some new stones in her kidneys. She has thickening in the upper sigmoid area. She otherwise looks ok. Her ekg was normal. She has had 1 liter of fluid and 20meq of k. She is much more comfortable in the chest and left shoulder. pt states she has had alot of stress this past winter. She lost both of her parents. In the process of treating her diarrhea she was taken off of her antidepressants. Departure - Departure Time of Disposition: 17:33 Disposition: Admitted As Inpatient 67 Condition: Fair Clinical Impression: Hypokalemia, Dehydration - Discharge Information Sepsis Event Note (ED) - Evaluation Sepsis Screening Result: No Definite Risk
[2020-04-15] MEDS ORDERED: Sodium Chloride 0.9% 1,000 ML IV SCH ×2 (15:00→15:15)
[2020-04-15] MEDS ORDERED: Sodium Chloride 0.9% 10 ML Syringe FLUSH PRN ×2 (15:13→18:31)
[2020-04-15] MEDS ORDERED: Iopamidol 612 MG/ML 100 ML Bottle IV SCH (15:15)
[2020-04-15] MEDS ORDERED: Sodium Chloride 0.9% 80 ML IV SCH (15:15)
[2020-04-15] MEDS: Potassium Chloride 20 MEQ in Premix Bag 1 BAG IV ONE ×2 (15:50→20:32)
--- NOTE | 2020-04-15 16:13 | CRLCT ---
INDICATION: Abdominal pain COMPARISON: 04/24/2017 TECHNIQUE: CT examination of the abdomen and pelvis was performed with the uneventful intravenous administration of 66 cc of Isovue-300 while 3 mm thick axial sections were obtained from the lung bases through the pubic symphysis. Oral contrast was not administered. Please note that all CT scans at this facility use dose modulation, iterative reconstruction, and/or weight-based dosing when appropriate to reduce radiation dose to as low as reasonably achievable. FINDINGS: In the abdomen, the liver, spleen, pancreas, and adrenals are normal in appearance. The kidneys are again seen to have very tiny areas of cortical low-density consistent with tiny cysts. There is a new tiny nonobstructive calculus in the lower pole of the right kidney. Clips are again seen in the gall bladder fossa from cholecystectomy. Again seen is mild dilatation of the common bile duct at 8 millimeters, consistent with cholecystectomy. The abdominal aorta is normal in caliber with no sign of dilatation. There is no sign of retroperitoneal mass or adenopathy. The stomach, loops of small bowel, and colon in the abdomen are normal in appearance. In the pelvis, the appendix is nonvisualized, but there is no sign of an inflammatory process in the area of the appendix. Again seen are surgical clips in the area of the base of the appendix consistent with appendectomy. There is a new area nondistention of the proximal sigmoid colon with a suggestion of wall thickening, best seen on axial image 70 series 2 and coronal image 33 series 3. This may simply be from underdistention, but colonic malignancy cannot be excluded. Suggest correlation with colonoscopy or flexible sigmoidoscopy. The loops of small bowel and the rest of the colon in the pelvis are normal in appearance. The uterus and adnexal regions are normal in appearance. The urinary bladder is normal in appearance. There is no sign of pelvic or inguinal mass or adenopathy. There is no sign of free air or free fluid in the abdomen or pelvis. The lung bases are clear. There is no change in moderate L4-5 and mild L5-S1 disc degenerative disease. IMPRESSION: CT of the abdomen shows stable changes of cholecystectomy with mild dilatation of the common bile duct consistent with post cholecystectomy status. New tiny nonobstructive calculus in the lower pole of the right kidney. No sign of hydronephrosis or hydroureter. CT of the pelvis shows nonspecific circumferential thickening of the wall of the superior sigmoid colon. While this may be from underdistention, colonic malignancy cannot be excluded. Recommend correlation with colonoscopy or flexible sigmoidoscopy. Please note that all CT scans at this facility use dose modulation, iterative reconstruction, and/or weight-based dosing when appropriate to reduce radiation dose to as low as reasonably achievable. Dictated by Kamron Lombardo MD @ Apr 15 2020 3:57PM Signed by Dr. Kamron Lombardo @ Apr 15 2020 4:11PM
[2020-04-15] MEDS ORDERED: Potassium Chloride 20 MEQ Tab.ER PO ONE ×2 (17:32→22:36)
[2020-04-15] MEDS ORDERED: Potassium Chloride Riders 40 MEQ in Premix Bag 1 BAG IV ONE (17:32)
--- NOTE | 2020-04-15 17:41 | PCM.HP.2 ---
H&P History of Present Illness - General Date of Service: 04/15/20 Admit Problem/Dx: Admission Diagnosis/Problem Admission Diagnosis/Problem Hypokalemia Source of Information: Patient, Provider, RN Notes Reviewed History Limitations: Reports: No Limitations - History of Present Illness Initial Comments - Free Text/Narative: Ms. Diaz is a 59-year-old woman who was admitted to observation status through the emergency department with severe hypokalemia, dehydration, and abdominal pain. She has had a history of diarrhea over the past few months. Colonoscopy was performed within the last month and biopsy was felt to be consistent with a lymphocytic colitis. She was just started on oral prednisone yesterday. Had ongoing difficulty with hypokalemia and was at the infusion center through the clinic for potassium infusion earlier today. While there she developed intense cramping pain across her lower abdomen, which also spread to her left shoulder and arm. She was sent over to the emergency department for further evaluation. Potassium level was found to be still very low at 2.3. White blood cell count was elevated at 16,000. CT scan of the abdomen pelvis did show some thickening in the sigmoid colon, decompression with thickening of the wall versus possible mass. As noted she just has had a colonoscopy within the past few weeks. After hydration she is feeling somewhat better and pain has almost totally resolved. EKG showed no acute changes and her troponin level was within normal range. Left Shoulder Pain Score (Numeric/FACES): 2 Jaw Pain Score (Numeric/FACES): 1 Lower Abdomen Pain Score (Numeric/FACES): 0 - Related Data Allergies/Adverse Reactions: Allergies Allergy/AdvReac Type Severity Reaction Status Date / Time venom-honey bee Allergy Severe Facial Verified 04/15/20 14:11 [bee venom (honey bee)] Swelling meperidine HCl [From Demerol] Allergy Unknown Hives Verified 04/15/20 14:11 adhesive tape Allergy Rash Verified 04/15/20 14:11 Home Medications: Home Meds Albuterol [Proair HFA] 1 - 2 puff INH Q4H PRN 11/28/13 [History] Cyclobenzaprine [Flexeril] 10 mg PO TID PRN 07/25/14 [History] EPINEPHrine [Epinephrine] 0.3 ml IM ONETIME PRN 02/24/15 [History] atorvaSTATin [Lipitor] 80 mg PO BEDTIME 07/18/15 [History] Diclofenac Sodium [Voltaren 1%] 1 applic TP QID 07/29/15 [History] Aspirin [Halfprin] 81 mg PO DAILY 03/30/20 [History] Budesonide/Formoterol [Symbicort 80-4.5 MCG] 2 puff INH BID 03/30/20 [History] Metoprolol Tartrate [Lopressor] 25 mg PO Q12HR 03/30/20 [History] Nicotine [Nicoderm CQ] 14 mg TD DAILY 03/30/20 [History] Potassium Chloride [Klor-Con M20] 20 meq PO BID 03/30/20 [History] Topiramate [Topamax] 50 mg PO BID 03/30/20 [History] Budesonide [Budesonide EC] 3 tab PO ASDIRECTED 04/15/20 [History] Cholestyramine (With Sugar) [Questran Powder] 4 gm PO BID 04/15/20 [History] Mirtazapine [Remeron] 15 mg PO BEDTIME 04/15/20 [History] Potassium Chloride [KCL 20 MEQ in Water 100 ML] 40 meq IV ASDIRECTED 04/15/20 [History] predniSONE [Prednisone] 20 mg PO ASDIRECTED 04/15/20 [History] Past Medical History HEENT History: Reports: Cataract, Impaired Vision Cardiovascular History: Reports: Afib, Hypertension Respiratory History: Reports: Asthma, COPD, Pneumonia, Recurrent Gastrointestinal History: Reports: Chronic Diarrhea, GERD, Irritable Bowel Syndrome, Other (See Below) Genitourinary History: Reports: None [employer]IAN History: Reports: Fibroids, Musculoskeletal History: Reports: Arthritis, Back Pain, Chronic, Fibromyalgia, Osteoporosis Neurological History: Reports: Headaches, Chronic Psychiatric History: Reports: Anxiety, Depression, Mood Swings Dermatologic History: Reports: Benign Melanoma - Infectious Disease History Infectious Disease History: Reports: Chicken Pox, Shingles - Past Surgical History Head Surgeries/Procedures: Reports: None HEENT Surgical History: Reports: None Cardiovascular Surgical History: Reports: Other (See Below) Other Cardiovascular Surgeries/Procedures: Angiogram 2014 Respiratory Surgical History: Reports: None GI Surgical History: Reports: Appendectomy, Cholecystectomy, Colonoscopy, Hernia, Abdominal, Other (See Below) Other GI Surgeries/Procedures: Abdominal mass under right rib 2014 removed Female Surgical History: Reports: Breast Biopsy, Salpingo-Oophorectomy, Tubal Ligation Neurological Surgical History: Reports: None Musculoskeletal Surgical History: Reports: None Dermatological Surgical History: Reports: None Social & Family History - Tobacco Use Smoking Status *Q: Current Every Day Smoker Years of Tobacco use: 45 Packs/Tins Daily: 0.5 Used Tobacco, but Quit: No Second Hand Smoke Exposure: No - Caffeine Use Caffeine Use: Reports: Coffee, Soda Other Caffeine Use: 2 bottles pop daily and 2 cups coffee - Recreational Drug Use Recreational Drug Use: No H&P Review of Systems - Review of Systems: Review Of Systems: See Below General: Reports: Weakness, Fatigue, Decreased Appetite. Denies: Fever, Chills HEENT: Reports: No Symptoms Pulmonary: Reports: No Symptoms Cardiovascular: Reports: No Symptoms Gastrointestinal: Reports: Abdominal Pain, Diarrhea, Decreased Appetite, Nausea, Vomiting. Denies: Black Stool, Bloody Stool, Constipation, Difficulty Swallowing, Distension Genitourinary: Reports: No Symptoms Musculoskeletal: Reports: Shoulder Pain, Arm Pain Skin: Reports: No Symptoms Psychiatric: Reports: Depression, Anxiety Neurological: Reports: No Symptoms Hematologic/Lymphatic: Reports: No Symptoms Immunologic: Reports: No Symptoms Exam - Exam Exam: See Below - Vital Signs Vital Signs: Last Vital Signs Temp 98.4 F 04/15/20 14:15 Pulse 65 04/15/20 17:15 Resp 16 04/15/20 17:15 BP 116/75 04/15/20 17:15 Pulse Ox 98 04/15/20 17:15 Weight: 98 lb - Exam General: Alert, Oriented, Cooperative, Mild Distress HEENT: Conjunctiva Clear, Hearing Intact, Normal Nasal Septum, Posterior Pharynx Clear, Pupils Equal. No: Mucosa Moist & [place] Neck: Supple, Trachea Midline, +2 Carotid Pulse wo Bruit Lungs: Clear to Auscultation, Normal Respiratory Effort, Decreased Breath Sounds Cardiovascular: Regular Rate, Regular Rhythm, Normal S1, Normal S2. No: Systolic Murmur, Diastolic Murmur GI/Abdominal Exam: Soft, No Organomegaly, Tender. No: Distended, Guarding, Rigid, Rebound Back Exam: Normal Inspection, Full Range of Motion Extremities: Non-Tender, No Pedal Edema Skin: Warm, Dry, Intact Neurological: Cranial Nerves Intact, Strength Equal Bilateral, Normal Speech, Sensation Intact. No: Focal Deficit Neuro Extensive - Mental Status: Alert, Oriented x3, Normal Mood/Affect, Normal Cognition, Memory Intact - Patient Data Lab Results Last 24 hrs: Laboratory Results - last 24 hr 04/15/20 04/15/20 04/15/20 Range/Units 14:26 14:26 14:26 WBC 16.1 H (4.5-11.0) K/uL RBC 4.27 (3.30-5.50) M/uL Hgb 13.0 (12.0-15.0) g/dL Hct 38.6 (36.0-48.0) % MCV 90 (80-98) fL MCH 30 (27-31) pg MCHC 34 (32-36) % Plt Count 319 (150-400) K/uL Neut % (Auto) 71 H (36-66) % Lymph % (Auto) 20 L (24-44) % [place] % (Auto) 9 H (2-6) % Eos % (Auto) 0 L (2-4) % Baso % (Auto) 0 (0-1) % Sodium 150 H (140-148) mmol/L Potassium 2.3 L* (3.6-5.2) mmol/L Chloride 111 H (100-108) mmol/L Carbon Dioxide 30 (21-32) mmol/L Anion Gap 11.3 (5.0-14.0) mmol/L BUN 10 (7-18) mg/dL Creatinine 0.8 (0.6-1.0) mg/dL Est Cr Clr Drug Dosing 53.79 mL/min Estimated GFR (MDRD) > 60 (>60) Glucose 87 (74-106) mg/dL Calcium 9.2 (8.5-10.1) mg/dL Total Bilirubin 0.2 (0.2-1.0) mg/dL AST 92 H D (15-37) U/L ALT 50 D (12-78) U/L Alkaline Phosphatase 109 (46-116) U/L Troponin I 0.018 (0.000-0.056) ng/mL C-Reactive Protein 0.50 H (0.0-0.3) mg/dL Total Protein 6.6 (6.4-8.2) g/dL Albumin 3.0 L (3.4-5.0) g/dL Globulin 3.6 H (2.3-3.5) g/dL Albumin/Globulin Ratio 0.8 L (1.2-2.2) Lipase 288 (73-393) U/L Urine Color (YELLOW) Urine Appearance (CLEAR) Urine pH (5.0-8.0) Ur Specific [place] (1.008-1.030) Urine Protein (NEGATIVE) mg/dL Urine Glucose (UA) (NEGATIVE) mg/dL Urine Ketones (NEGATIVE) mg/dL Urine Occult Blood (NEGATIVE) Urine Nitrite (NEGATIVE) Urine Bilirubin (NEGATIVE) Urine Urobilinogen (0.2-1.0) EU/dL Ur Leukocyte Esterase (NEGATIVE) Urine RBC (0-5) Urine WBC (0-5) Ur Epithelial Cells Amorphous Sediment Urine Bacteria Urine Mucus 04/15/20 Range/Units 15:00 WBC (4.5-11.0) K/uL RBC (3.30-5.50) M/uL Hgb (12.0-15.0) g/dL Hct (36.0-48.0) % MCV (80-98) fL MCH (27-31) pg MCHC (32-36) % Plt Count (150-400) K/uL Neut % (Auto) (36-66) % Lymph % (Auto) (24-44) % [place] % (Auto) (2-6) % Eos % (Auto) (2-4) % Baso % (Auto) (0-1) % Sodium (140-148) mmol/L Potassium (3.6-5.2) mmol/L Chloride (100-108) mmol/L Carbon Dioxide (21-32) mmol/L Anion Gap (5.0-14.0) mmol/L BUN (7-18) mg/dL Creatinine (0.6-1.0) mg/dL Est Cr Clr Drug Dosing mL/min Estimated GFR (MDRD) (>60) Glucose (74-106) mg/dL Calcium (8.5-10.1) mg/dL Total Bilirubin (0.2-1.0) mg/dL AST (15-37) U/L ALT (12-78) U/L Alkaline Phosphatase (46-116) U/L Troponin I (0.000-0.056) ng/mL C-Reactive Protein (0.0-0.3) mg/dL Total Protein (6.4-8.2) g/dL Albumin (3.4-5.0) g/dL Globulin (2.3-3.5) g/dL Albumin/Globulin Ratio (1.2-2.2) Lipase (73-393) U/L Urine Color Yellow (YELLOW) Urine Appearance Clear (CLEAR) Urine pH 7.5 (5.0-8.0) Ur Specific [place] 1.020 (1.008-1.030) Urine Protein Negative (NEGATIVE) mg/dL Urine Glucose (UA) Negative (NEGATIVE) mg/dL Urine Ketones Negative (NEGATIVE) mg/dL Urine Occult Blood Trace-intact H (NEGATIVE) Urine Nitrite Negative (NEGATIVE) Urine Bilirubin Negative (NEGATIVE) Urine Urobilinogen 0.2 (0.2-1.0) EU/dL Ur Leukocyte Esterase Trace H (NEGATIVE) Urine RBC 0-5 (0-5) Urine WBC 0-5 (0-5) Ur Epithelial Cells Rare Amorphous Sediment Not seen Urine Bacteria Not seen Urine Mucus Not seen Result Diagrams: 04/15/20 14:26 04/15/20 14:26 Sepsis Event Note - Evaluation Sepsis Screening Result: No Definite Risk - Focused Exam Vital Signs: Vital Signs Temp Pulse Resp BP Pulse Ox 04/15/20 17:15 65 16 116/75 98 04/15/20 16:35 67 12 125/82 99 04/15/20 14:15 98.4 F 74 9 L 153/105 H 99 04/15/20 14:14 98.4 F 74 9 L 153/105 H 99 Date Exam was Performed: 04/15/20 Time Exam was Performed: 18:12 *Q Meaningful Use (ADM) - VTE Risk Assess *Q Each Risk Factor Represents 1 Point: Age 41 - 59 years Total Score 1 Point Risk Factors: 1 Each Risk Factor Represents 2 Points: None Total Score 2 Point Risk Factors: 0 Each Risk Factor Represents 3 Points: None Total Score 3 Point Risk Factors: 0 Each Risk Factor Represents 5 Points: None Total Score 5 Point Risk Factors: 0 Venous Thromboembolism Risk Factor Score *Q: 1 Problem List Initiated/Reviewed/Updated: Yes Orders Last 24hrs: Active Orders 24 hr Category Date Time Status Patient Status Manage Transfer [TRANSFER] Routine ADT 04/15/20 17:33 Ordered EKG Documentation Completion [RC] ASDIRECTED Care 04/15/20 14:22 Active TROPONIN I [CHEM] Stat Lab 04/15/20 17:35 Ordered Iopamidol [Isovue-300 (61%)] Med 04/15/20 15:15 Active 100 ml IV . DIRECTED Potassium Chloride [KCL 20 MEQ in Water 100 ML] 100 ml Med 04/15/20 18:00 Active IV Q2H Sodium Chloride 0.9% [Normal Saline] 1,000 ml Med 04/15/20 15:00 Active IV ASDIRECTED Sodium Chloride 0.9% [Normal Saline] 1,000 ml Med 04/15/20 15:15 Active IV ASDIRECTED Sodium Chloride 0.9% [Normal Saline] 80 ml Med 04/15/20 15:15 Active IV ASDIRECTED Sodium Chloride 0.9% [Saline Flush] Med 04/15/20 15:13 Active 10 ml FLUSH ASDIRECTED PRN Resuscitation Status Routine Resus Stat 04/15/20 17:37 Ordered EKG 12 Lead [EK] Routine Ther 04/15/20 14:22 Ordered Medication Orders Sodium Chloride (Normal Saline) 1,000 mls @ 999 mls/hr IV ASDIRECTED [facility] Last Admin: 04/15/20 15:48 Dose: 999 mls/hr Documented by: KD Sodium Chloride (Normal Saline) 1,000 mls @ 999 mls/hr IV ASDIRECTED [facility] Sodium Chloride (Normal Saline) 80 mls @ 3 mls/sec IV ASDIRECTED [facility] Last Admin: 04/15/20 15:39 Dose: 3 mls/sec Documented by: ANDRIY Potassium Chloride (Kcl 20 Meq In Water 100 Ml) 100 mls @ 50 mls/hr IV Q2H [facility] Stop: 04/15/20 21:59 Iopamidol (Isovue-300 (61%)) 100 ml IV . DIRECTED [facility] Last Admin: 04/15/20 15:40 Dose: 66 ml Documented by: ANDRIY Sodium Chloride (Saline Flush) 10 ml FLUSH ASDIRECTED PRN PRN Reason: Keep Vein Open Last Admin: 04/15/20 15:39 Dose: 10 ml Documented by: ANDRIY Assessment/Plan Comment:: ASSESSMENT AND PLAN HYPOKALEMIA-secondary to recent diarrhea and poor oral intake -IV and oral potassium replacement -Reassess potassium level later tonight and in a.m. DEHYDRATION-secondary to poor oral intake and diarrhea -IV fluids for hydration CRAMPING ABDOMINAL PAIN-pain occurred across the lower abdomen, similar to what she is experienced with her diarrhea and colitis. This pain was similar but more intense and lasted longer than it had previously. CT scan shows no obvious cause or evidence of underlying infection. LYMPHOCYTIC COLITIS-diagnosed based on pathology from recent colonoscopy -Continue oral prednisone MAINTENANCE ISSUES -DVT prophylaxis; SCUDs -GI prophylaxis; not indicated -Santos catheter; not indicated -Nutrition; regular diet -Nicotine dependence; continue outpatient nicotine patch CODE STATUS-FULL CODE ADMISSION STATUS-patient will be admitted to inpatient status, expect at least a 2 night hospital stay for evaluation and management of problems as outlined ab [email or web address]. At the time of this admission I do not reasonably expected evaluation and management of this problem will require more than a 96 hour hospital stay. DISPOSITION-anticipate discharge to home after the hospital stay. PRIMARY CARE PROVIDER-Marcie Chun - Mortality Measure Prognosis:: Good
[2020-04-15] MEDS: Potassium Chloride 100 ML IV SCH ×2 (17:51→20:34)
[2020-04-15] MEDS ORDERED: Ondansetron 4 MG/2 ML SDV IV PRN (18:31)
[2020-04-15] MEDS ORDERED: Acetaminophen 325 MG Tab PO PRN (18:31)
[2020-04-15] MEDS ORDERED: Albuterol 8 GM Inhaler INH PRN (18:31)
[2020-04-15] MEDS ORDERED: POTASSIUM CHLORIDE IV SCH (18:31)
[2020-04-15] MEDS ORDERED: BUDESONIDE PO SCH (18:31)
[2020-04-15] MEDS ORDERED: [UNRECOGNIZED DRUG - OTHER] IV SCH (18:31)
[2020-04-15] MEDS: Sodium Chloride 0.9% 1,000 ML IV SCH (19:22)
[2020-04-15] MEDS: Metoprolol Tartrate 25 MG Tab PO SCH (20:33)
[2020-04-15] MEDS: predniSONE 20 MG Tab PO SCH (20:33)
[2020-04-15] MEDS: Topiramate 25 MG Tab PO SCH (20:34)
[2020-04-15] MEDS ORDERED: Mirtazapine 15 MG Tab PO SCH (21:00)
[2020-04-15] MEDS ORDERED: atorvaSTATin 20 MG Tab PO SCH (21:00)
[2020-04-15] MEDS ORDERED: Fluticasone-Salmeterol 113-14 MCG Powder Inhalant INH SCH (21:00)
[2020-04-15] MEDS ORDERED: Potassium Chloride 20 MEQ in Premix Bag 1 BAG IV ONE ×4 (22:38)
--- NOTE | 2020-04-15 22:44 | PCM.SN.2 ---
- Free Text/Narrative Note: time 2200 call from [address] [place] [address]- critical lab. Potassium 2.7 O: vital signs p-75 B/P 134/78 O2 sat 96% A: Hypokalemia P: Potassium replacement give IV Potassium 40 meq. once give PO Potassium 40 meq. once recheck BMP in am
[2020-04-16] MEDS ORDERED: Potassium Chloride 20 MEQ in Premix Bag 1 BAG IV ONE (01:16)
[2020-04-16] MEDS: Sodium Chloride 0.9% 1,000 ML IV SCH ×2 (02:33→10:04)
[2020-04-16] MEDS ORDERED: Fluticasone-Salmeterol 113-14 MCG Powder Inhalant INH SCH ×2 (07:30)
[2020-04-16] MEDS ORDERED: Cholestyramine/Sucrose Powder 4 GM Packet PO SCH (08:00)
[2020-04-16] MEDS ORDERED: Aspirin 81 MG Tab.EC PO SCH (09:00)
[2020-04-16] MEDS ORDERED: Nicotine 14 MG/24 Hr Patch TRDERM SCH (09:00)
[2020-04-16 09:05] VITALS: BP 121/67
[2020-04-16] MEDS: Metoprolol Tartrate 25 MG Tab PO SCH (09:06)
[2020-04-16] MEDS: predniSONE 20 MG Tab PO SCH (09:07)
[2020-04-16] MEDS: Topiramate 25 MG Tab PO SCH (09:07)
[2020-04-16 09:11] VITALS: PULSE 55
--- NOTE | 2020-04-16 11:01 | PCM.DCSUM1 ---
Discharge Summary - Hospital Course Brief History: Ms. Diaz is a 59-year-old woman who was admitted to observation status through the emergency department for management of severe hypokalemia and dehydration, secondary to underlying lymphocytic colitis. - Discharge Data Discharge Date: 04/16/20 Discharge Disposition: Home, Self-Care 01 Condition: Fair - Referral to Home Health Date of Face to Face Encounter: 04/16/20 Primary Care Physician: PCP None - Discharge Diagnosis/Problem(s) (1) Lymphocytic colitis SNOMED Code(s): 32372363 ICD Code: K52.832 - LYMPHOCYTIC COLITIS Status: Acute Current Visit: Yes (2) Hypokalemia SNOMED Code(s): 35913283 ICD Code: E87.6 - HYPOKALEMIA Status: Acute Current Visit: Yes (3) Dehydration SNOMED Code(s): 00320401 ICD Code: E86.0 - DEHYDRATION Status: Acute Current Visit: Yes (4) COLD, Chronic obstructive lung disease SNOMED Code(s): 46944513 ICD Code: J44.9 - CHRONIC OBSTRUCTIVE PULMONARY DISEASE, UNSPECIFIED Status: Chronic Current Visit: No - Patient Summary/Data Hospital Course: Ms. Diaz is a 59-year-old woman who was admitted to observation status through the emergency department with severe hypokalemia, dehydration, and abdominal pain. She has had a history of diarrhea over the past few months. Colonoscopy was performed within the last month and biopsy was felt to be consistent with a lymphocytic colitis. She was just started on oral prednisone yesterday. She has had ongoing difficulty with hypokalemia and was at the infusion center through the clinic for potassium infusion earlier today. While there she developed intense cramping pain across her lower abdomen, which also spread to her left shoulder and arm. She was sent over to the emergency department for further evaluation. Potassium level was found to be still very low at 2.3. White blood cell count was elevated at 16,000. CT scan of the abdomen pelvis did show some thickening in the sigmoid colon, decompression with thickening of the wall versus possible mass. As noted she just has had a colonoscopy within the past few weeks. After hydration she is feeling somewhat better and pain has almost totally resolved. EKG showed no acute changes and her troponin level was within normal range. On admission she continued to receive IV and oral potassium replacement and by the time of discharge the next day potassium level was within normal range. She also received IV fluids for hydration. The following morning she tolerated regular diet without significant diarrhea. Abdominal pain was significantly improved but had not totally resolved. Activity will be as tolerated and she will resume her usual diet. Follow-up appointment will be scheduled with her primary care provider within 1 week, BMP will be obtained at the time of follow-up appointment. - Patient Instructions Diet: Usual Diet as Tolerated Activity: As Tolerated Other/Special Instructions: Please schedule follow-up appointment with primary care provider within 1 week. BMP should be obtained at the time of follow-up appointment. - Discharge Plan *PRESCRIPTION DRUG MONITORING PROGRAM REVIEWED*: Not Applicable *COPY OF PRESCRIPTION DRUG MONITORING REPORT IN PATIENT SYDNIE: Not Applicable Prescriptions/Med Rec: Potassium Chloride 20 meq PO BID #120 cap.er Home Medications: Home Meds Albuterol [Proair HFA] 1 - 2 puff INH Q4H PRN 11/28/13 [History] Cyclobenzaprine [Flexeril] 10 mg PO TID PRN 07/25/14 [History] EPINEPHrine [Epinephrine] 0.3 ml IM ONETIME PRN 02/24/15 [History] atorvaSTATin [Lipitor] 80 mg PO BEDTIME 07/18/15 [History] Diclofenac Sodium [Voltaren 1% Gel] 1 applic TP QID 07/29/15 [History] Aspirin [Halfprin] 81 mg PO DAILY 03/30/20 [History] Budesonide/Formoterol [Symbicort 80-4.5 MCG] 2 puff INH BID 03/30/20 [History] Metoprolol Tartrate [Lopressor] 25 mg PO Q12HR 03/30/20 [History] Nicotine [Nicoderm CQ] 14 mg TD DAILY 03/30/20 [History] Topiramate [Topamax] 50 mg PO BID 03/30/20 [History] Budesonide [Budesonide EC] 3 tab PO ASDIRECTED 04/15/20 [History] Cholestyramine (With Sugar) [Questran Powder] 4 gm PO BID 04/15/20 [History] Mirtazapine [Remeron] 15 mg PO BEDTIME 04/15/20 [History] predniSONE [Prednisone] 20 mg PO ASDIRECTED 04/15/20 [History] Potassium Chloride 20 meq PO BID #120 cap.er 04/16/20 [Rx] Patient Handouts: Hypokalemia, Potassium Content of Foods Referrals: Betsy Chun PA-C [Ordering Only Provider] - 04/19/20 4:00 pm (Please arrive at 3:15 for a BMP lab draw prior to appointment.) - Discharge Summary/Plan Comment DC Time >30 min.: No - Patient Data Vitals - Most Recent: Last Vital Signs Temp 96.1 F L 04/16/20 08:00 Pulse 55 L 04/16/20 09:06 Resp 18 04/16/20 08:00 BP 121/67 04/16/20 09:06 Pulse Ox 99 04/16/20 08:00 Weight - Most Recent: 105 lb I&O - Last 24 hours: Intake & Output 04/15/20 04/16/20 04/16/20 22:59 06:59 14:59 Intake Total 3929 311 Output Total 1750 300 Balance 2179 11 Lab Results - Last 24 hrs: Laboratory Results - last 24 hr 04/15/20 04/15/20 04/15/20 Range/Units 14:26 14:26 14:26 WBC 16.1 H (4.5-11.0) K/uL RBC 4.27 (3.30-5.50) M/uL Hgb 13.0 (12.0-15.0) g/dL Hct 38.6 (36.0-48.0) % MCV 90 (80-98) fL MCH 30 (27-31) pg MCHC 34 (32-36) % Plt Count 319 (150-400) K/uL Neut % (Auto) 71 H (36-66) % Lymph % (Auto) 20 L (24-44) % [place] % (Auto) 9 H (2-6) % Eos % (Auto) 0 L (2-4) % Baso % (Auto) 0 (0-1) % Sodium 150 H (140-148) mmol/L Potassium 2.3 L* (3.6-5.2) mmol/L Chloride 111 H (100-108) mmol/L Carbon Dioxide 30 (21-32) mmol/L Anion Gap 11.3 (5.0-14.0) mmol/L BUN 10 (7-18) mg/dL Creatinine 0.8 (0.6-1.0) mg/dL Est Cr Clr Drug Dosing 53.79 mL/min Estimated GFR (MDRD) > 60 (>60) Glucose 87 (74-106) mg/dL Calcium 9.2 (8.5-10.1) mg/dL Total Bilirubin 0.2 (0.2-1.0) mg/dL AST 92 H D (15-37) U/L ALT 50 D (12-78) U/L Alkaline Phosphatase 109 (46-116) U/L Troponin I 0.018 (0.000-0.056) ng/mL C-Reactive Protein 0.50 H (0.0-0.3) mg/dL Total Protein 6.6 (6.4-8.2) g/dL Albumin 3.0 L (3.4-5.0) g/dL Globulin 3.6 H (2.3-3.5) g/dL Albumin/Globulin Ratio 0.8 L (1.2-2.2) Lipase 288 (73-393) U/L Urine Color (YELLOW) Urine Appearance (CLEAR) Urine pH (5.0-8.0) Ur Specific [place] (1.008-1.030) Urine Protein (NEGATIVE) mg/dL Urine Glucose (UA) (NEGATIVE) mg/dL Urine Ketones (NEGATIVE) mg/dL Urine Occult Blood (NEGATIVE) Urine Nitrite (NEGATIVE) Urine Bilirubin (NEGATIVE) Urine Urobilinogen (0.2-1.0) EU/dL Ur Leukocyte Esterase (NEGATIVE) Urine RBC (0-5) Urine WBC (0-5) Ur Epithelial Cells Amorphous Sediment Urine Bacteria Urine Mucus 04/15/20 04/15/20 04/15/20 Range/Units 15:00 17:50 22:05 WBC (4.5-11.0) K/uL RBC (3.30-5.50) M/uL Hgb (12.0-15.0) g/dL Hct (36.0-48.0) % MCV (80-98) fL MCH (27-31) pg MCHC (32-36) % Plt Count (150-400) K/uL Neut % (Auto) (36-66) % Lymph % (Auto) (24-44) % [place] % (Auto) (2-6) % Eos % (Auto) (2-4) % Baso % (Auto) (0-1) % Sodium (140-148) mmol/L Potassium 2.7 L* (3.6-5.2) mmol/L Chloride (100-108) mmol/L Carbon Dioxide (21-32) mmol/L Anion Gap (5.0-14.0) mmol/L BUN (7-18) mg/dL Creatinine (0.6-1.0) mg/dL Est Cr Clr Drug Dosing mL/min Estimated GFR (MDRD) (>60) Glucose (74-106) mg/dL Calcium (8.5-10.1) mg/dL Total Bilirubin (0.2-1.0) mg/dL AST (15-37) U/L ALT (12-78) U/L Alkaline Phosphatase (46-116) U/L Troponin I 0.023 (0.000-0.056) ng/mL C-Reactive Protein (0.0-0.3) mg/dL Total Protein (6.4-8.2) g/dL Albumin (3.4-5.0) g/dL Globulin (2.3-3.5) g/dL Albumin/Globulin Ratio (1.2-2.2) Lipase (73-393) U/L Urine Color Yellow (YELLOW) Urine Appearance Clear (CLEAR) Urine pH 7.5 (5.0-8.0) Ur Specific [place] 1.020 (1.008-1.030) Urine Protein Negative (NEGATIVE) mg/dL Urine Glucose (UA) Negative (NEGATIVE) mg/dL Urine Ketones Negative (NEGATIVE) mg/dL Urine Occult Blood Trace-intact H (NEGATIVE) Urine Nitrite Negative (NEGATIVE) Urine Bilirubin Negative (NEGATIVE) Urine Urobilinogen 0.2 (0.2-1.0) EU/dL Ur Leukocyte Esterase Trace H (NEGATIVE) Urine RBC 0-5 (0-5) Urine WBC 0-5 (0-5) Ur Epithelial Cells Rare Amorphous Sediment Not seen Urine Bacteria Not seen Urine Mucus Not seen 04/16/20 04/16/20 Range/Units 04:10 04:10 WBC 8.3 (4.5-11.0) K/uL RBC 3.60 (3.30-5.50) M/uL Hgb 11.1 L (12.0-15.0) g/dL Hct 33.7 L (36.0-48.0) % MCV 94 (80-98) fL MCH 31 (27-31) pg MCHC 33 (32-36) % Plt Count 234 (150-400) K/uL Neut % (Auto) 85 H (36-66) % Lymph % (Auto) 13 L (24-44) % [place] % (Auto) 2 (2-6) % Eos % (Auto) 0 L (2-4) % Baso % (Auto) 0 (0-1) % Sodium 148 (140-148) mmol/L Potassium 3.9 (3.6-5.2) mmol/L Chloride 116 H (100-108) mmol/L Carbon Dioxide 24 (21-32) mmol/L Anion Gap 11.9 (5.0-14.0) mmol/L BUN 9 (7-18) mg/dL Creatinine 0.8 (0.6-1.0) mg/dL Est Cr Clr Drug Dosing 57.41 mL/min Estimated GFR (MDRD) > 60 (>60) Glucose 134 H (74-106) mg/dL Calcium 7.9 L (8.5-10.1) mg/dL Total Bilirubin (0.2-1.0) mg/dL AST (15-37) U/L ALT (12-78) U/L Alkaline Phosphatase (46-116) U/L Troponin I (0.000-0.056) ng/mL C-Reactive Protein (0.0-0.3) mg/dL Total Protein (6.4-8.2) g/dL Albumin (3.4-5.0) g/dL Globulin (2.3-3.5) g/dL Albumin/Globulin Ratio (1.2-2.2) Lipase (73-393) U/L Urine Color (YELLOW) Urine Appearance (CLEAR) Urine pH (5.0-8.0) Ur Specific [place] (1.008-1.030) Urine Protein (NEGATIVE) mg/dL Urine Glucose (UA) (NEGATIVE) mg/dL Urine Ketones (NEGATIVE) mg/dL Urine Occult Blood (NEGATIVE) Urine Nitrite (NEGATIVE) Urine Bilirubin (NEGATIVE) Urine Urobilinogen (0.2-1.0) EU/dL Ur Leukocyte Esterase (NEGATIVE) Urine RBC (0-5) Urine WBC (0-5) Ur Epithelial Cells Amorphous Sediment Urine Bacteria Urine Mucus Med Orders - Current: Current Medications Acetaminophen (Tylenol) 650 mg PO Q4H PRN PRN Reason: Pain (Mild 1-3)/fever Last Admin: 04/16/20 03:16 Dose: 650 mg Documented by: Albuterol (Ventolin Hfa) 0 gm INH Q4H PRN PRN Reason: Wheezing Aspirin (Halfprin) 81 mg PO DAILY [facility] Last Admin: 04/16/20 09:07 Dose: 81 mg Documented by: Atorvastatin Calcium (Lipitor) 80 mg PO BEDTIME [facility] Last Admin: 04/15/20 20:33 Dose: 80 mg Documented by: Cholestyramine Resin (Cholestyramine Packet) 4 gm PO BIDMEALS [facility] Last Admin: 04/16/20 09:10 Dose: 4 gm Documented by: Sodium Chloride (Normal Saline) 1,000 mls @ 125 mls/hr IV ASDIRECTED [facility] Last Admin: 04/16/20 10:04 Dose: 125 mls/hr Documented by: Metoprolol Tartrate (Lopressor) 25 mg PO BID [facility] Last Admin: 04/16/20 09:06 Dose: 25 mg Documented by: Mirtazapine (Remeron) 15 mg PO BEDTIME [facility] Last Admin: 04/15/20 20:33 Dose: 15 mg Documented by: Nicotine (Habitrol) 14 mg TRDERM DAILY [facility] Last Admin: 04/16/20 09:07 Dose: 14 mg Documented by: Non-Formulary Medication (Budesonide [Budesonide Ec]) 3 tab PO ASDIRECTED [facility] Ondansetron HCl (Zofran) 4 mg IV Q4H PRN PRN Reason: Nausea/Vomiting Prednisone (Prednisone) 40 mg PO DAILY [facility] Last Admin: 04/16/20 09:07 Dose: 40 mg Documented by: Fluticasone/Salmeterol (Fluticasone-Salmeterol 113-14 Mcg Powder Inh) 1 puff INH BIDRT [facility] Last Admin: 04/16/20 08:35 Dose: Not Given Documented by: Sodium Chloride (Saline Flush) 10 ml FLUSH ASDIRECTED PRN PRN Reason: Keep Vein Open Topiramate (Topamax) 50 mg PO BID [facility] Last Admin: 04/16/20 09:07 Dose: 50 mg Documented by: Discontinued Medications Sodium Chloride (Normal Saline) 1,000 mls @ 999 mls/hr IV ASDIRECTED [facility] Last Admin: 04/15/20 15:48 Dose: 999 mls/hr Documented by: Sodium Chloride (Normal Saline) 1,000 mls @ 999 mls/hr IV ASDIRECTED [facility] Potassium Chloride 20 meq/ (Premix) 100 mls @ 50 mls/hr IV ONETIME ONE Stop: 04/15/20 17:04 Last Admin: 04/15/20 20:32 Dose: 50 mls/hr Documented by: Sodium Chloride (Normal Saline) 80 mls @ 3 mls/sec IV ASDIRECTED [facility] Last Admin: 04/15/20 15:39 Dose: 3 mls/sec Documented by: Potassium Chloride (Kcl 20 Meq In Water 100 Ml) 100 mls @ 50 mls/hr IV Q2H [facility] Stop: 04/15/20 21:59 Last Admin: 04/15/20 20:34 Dose: Not Given Documented by: Potassium Chloride 20 meq/ (Premix) 100 mls @ 50 mls/hr IV ONETIME ONE Stop: 04/16/20 00:37 Last Admin: 04/15/20 23:08 Dose: 50 mls/hr Documented by: Potassium Chloride 20 meq/ (Premix) 100 mls @ 50 mls/hr IV ONETIME ONE Stop: 04/16/20 00:37 Last Admin: 04/16/20 01:51 Dose: Not Given Documented by: Potassium Chloride 20 meq/ (Premix) 100 mls @ 50 mls/hr IV ONETIME ONE Stop: 04/16/20 03:14 Last Admin: 04/16/20 01:53 Dose: 50 mls/hr Documented by: Iopamidol (Isovue-300 (61%)) 100 ml IV . DIRECTED [facility] Last Admin: 04/15/20 15:40 Dose: 66 ml Documented by: Lidocaine HCl (Xylocaine-Mpf 1%) 5 ml INJECT ONETIME ONE Stop: 04/16/20 01:33 Last Admin: 04/16/20 01:54 Dose: 5 ml Documented by: Potassium Chloride (Klor-Con M20) 40 meq PO ONETIME ONE Stop: 04/15/20 17:33 Last Admin: 04/15/20 17:50 Dose: 40 meq Documented by: Potassium Chloride (Klor-Con M20) 40 meq PO ONETIME ONE Stop: 04/15/20 22:37 Last Admin: 04/15/20 23:08 Dose: 40 meq Documented by: Fluticasone/Salmeterol (Fluticasone-Salmeterol 113-14 Mcg Powder Inh) 1 puff INH BID [facility] Last Admin: 04/15/20 23:09 Dose: Not Given Documented by: Sodium Chloride (Saline Flush) 10 ml FLUSH ASDIRECTED PRN PRN Reason: Keep Vein Open Last Admin: 04/15/20 15:39 Dose: 10 ml Documented by: - Exam General: Reports: Alert, Oriented, Cooperative, No Acute Distress Lungs: Reports: Clear to Auscultation, Normal Respiratory Effort, Decreased Breath Sounds Cardiovascular: Reports: Regular Rate, Regular Rhythm, No Murmurs GI/Abdominal Exam: Soft, No Organomegaly, Tender. No: Distended, Guarding, Rigid, Rebound
== END 2020-04-16 12:00 | disposition home or self-care (01) ==
LOC: JP.ED 14:08 → JP.MS 17:33
PROVIDERS: ADMIT Hospitalist; ATTEND Hospitalist
DX: K52.832 Lymphocytic colitis (principal); E87.6 Hypokalemia; E86.0 Dehydration; K21.9 Gastro-esophageal reflux disease without esophagitis; J44.9 Chronic obstructive pulmonary disease, unspecified; F41.9 Anxiety disorder, unspecified; F32.9 Major depressive disorder, single episode, unspecified; F17.210 Nicotine dependence, cigarettes, uncomplicated; I10 Essential (primary) hypertension; Z91.030 Bee allergy status; Z88.5 Allergy status to narcotic agent; Z79.82 Long term (current) use of aspirin; Z79.899 Other long term (current) drug therapy; Z79.51 Long term (current) use of inhaled steroids
CPT/HCPCS: 36415; 74177; 80048; 80053; 81001; 83690; 84132; 84484; 85025; 86140; 93005; 96361; 96365; 96366; 99285; A9270; G0378; J2001; J3480; J7030; J7050; J7512; Q9967; 93010

== ENCOUNTER 2020-10-21 07:56 | Day surgery (SDC) | payer MEDICAID ==
[~2020-10-21 07:56] MED LIST: Midazolam 1 MG/ML 2 ML SDV ONE; Propofol 200 MG/20 ML SDV ONE; fentaNYL 100 MCG/2 ML SDV ONE
[2020-10-21] MEDS ORDERED: Dextrose 5%-Lactated Ringers 1,000 ML IV SCH (08:45)
[2020-10-21 11:39] VITALS: BP 134/64; PULSE 78
--- NOTE | 2020-10-31 11:39 | OR ---
DATE OF PROCEDURE: 10/21/2020 SURGEON: Gold Chavez MD PREOPERATIVE DIAGNOSIS: Laryngopharyngeal dysphagia likely associated with gastroesophageal reflux disease. POSTOPERATIVE DIAGNOSIS: Laryngopharyngeal dysphagia associated with large hiatal hernia and actively ulcerated gastroesophageal reflux disease. OPERATIVE PROCEDURE: Esophagogastroduodenoscopy with biopsies of esophagogastric junction. ANESTHESIA: IV sedation. INDICATION FOR PROCEDURE: A 59-year-old female presenting with worsening problems with gastroesophageal reflux disease. She has quite a bit of heartburn, but also has at this point a large amount of laryngopharyngeal discomfort and dysphagia. The plan is to proceed with upper GI endoscopy with biopsies as indicated. Potential risks of the procedure including bleeding and perforation were discussed and the patient wishes to proceed. DETAILS OF PROCEDURE: The patient was taken to the operating room and placed in the left lateral decubitus position. IV sedation was administered, after which the upper GI endoscope was passed orally through the length of the esophagus into the stomach with retroflexion view of the fundus and thereafter through the pyloric channel and into the proximal duodenum. Findings included a reddened hypopharynx and larynx. This was associated with some edema, and the upper esophageal sphincter and esophageal body were otherwise unremarkable. At the EG junction, there was large hiatal hernia measuring around 4 to 5 cm with linear ulcers extending upward from the gastroesophageal junction mucosal line. No stricturing or gross evidence of neoplasia was seen. Within the stomach, retroflexion confirmed the large hiatal hernia. There was no significant redness or edema in the remainder of the stomach, pyloric channel, or first to third portions of the duodenum. Scope was then withdrawn and biopsies obtained from the esophagogastric junction and sent for histologic evaluation. No bleeding from biopsy site was seen and the procedure then concluded. At this point, the patient is obviously failing medical management with her reflux disease, and after discussion, she would like to proceed with a Elsy fundoplication in few days from now. Glod Chavez MD /[id number]
== END 2020-10-21 12:40 | disposition home or self-care (01) ==
LOC: JP.SDS 07:56
PROVIDERS: ATTEND Surgery
DX: K25.9 Gastric ulcer, unspecified as acute or chronic, without hemorrhage or perforation (principal); K21.9 Gastro-esophageal reflux disease without esophagitis; R13.13 Dysphagia, pharyngeal phase; K44.9 Diaphragmatic hernia without obstruction or gangrene; I10 Essential (primary) hypertension; J44.9 Chronic obstructive pulmonary disease, unspecified
CPT/HCPCS: 36415; 80053; 83735; 83880; 84100; 85027; 88305; J2250; J2704; J3010; J7121

== ENCOUNTER 2020-10-22 06:32 | Inpatient (IN) | payer MEDICAID ==
[~2020-10-22 06:32] MED LIST changes: +Acetaminophen 500 MG Tab PO ONE; -Midazolam 1 MG/ML 2 ML SDV ONE; -Propofol 200 MG/20 ML SDV ONE; +Scopolamine 1.5 MG Transdermal Patch TOP SCH; -fentaNYL 100 MCG/2 ML SDV ONE
[2020-10-22] MEDS ORDERED: Albuterol/Ipratropium 3.0-0.5 MG/3 ML Neb Soln NEB ONE (07:00)
[2020-10-22] MEDS ORDERED: Dextrose 5%-Lactated Ringers 1,000 ML IV SCH (07:00)
[2020-10-22] MEDS ORDERED: fentaNYL 250 MCG/5 ML SDV ONE ×2 (07:09→08:19)
[2020-10-22] MEDS ORDERED: Neostigmine Methylsulfate 1 MG/ML 5 ML Syringe ONE (07:10)
[2020-10-22] MEDS ORDERED: Rocuronium 50 MG/5 ML Vial ONE (07:10)
[2020-10-22] MEDS ORDERED: Dexamethasone 4 MG/ML SDV ONE (07:10)
[2020-10-22] MEDS ORDERED: Glycopyrrolate 0.2 MG/ML 5 ML MDV ONE (07:10)
[2020-10-22] MEDS ORDERED: Succinylcholine 200 MG/10 ML MDV ONE (07:10)
[2020-10-22] MEDS ORDERED: Propofol 200 MG/20 ML SDV ONE (07:10)
[2020-10-22] MEDS ORDERED: Ondansetron 4 MG/2 ML SDV ONE (07:10)
[2020-10-22] MEDS ORDERED: Ketamine 500 MG/5 ML MDV IV SCH (08:00)
[2020-10-22] MEDS ORDERED: Ketamine 50 MG in Sodium Chloride 0.9% 49.5 ML IV SCH (08:00)
[2020-10-22] MEDS ORDERED: Ropivacaine 30 ML, dexAMETHasone 8 MG, EPINEPHrine 0.4 MG, Sodium Chloride 0.9% 47.6 ML NERVRT SCH ×4 (08:00)
[2020-10-22] MEDS ORDERED: Labetalol 20 MG/4 ML Syringe ONE (08:18)
[2020-10-22] MEDS ORDERED: Sugammadex Sodium 200 MG/2 ML VIAL ONE (09:02)
[2020-10-22] MEDS ORDERED: Lactated Ringers 1,000 ML ONE (09:03)
[2020-10-22] MEDS ORDERED: HYDROmorphone 1 MG/ML Syringe IV PRN (09:45)
[2020-10-22] MEDS ORDERED: Ondansetron 4 MG/2 ML SDV IVPUSH PRN (09:47)
[2020-10-22] MEDS ORDERED: Albuterol/Ipratropium 3.0-0.5 MG/3 ML Neb Soln INH PRN (09:47)
[2020-10-22] MEDS: HYDROmorphone 0.5 MG/0.5 ML Syringe IVPUSH PRN ×3 (10:14→22:38)
[2020-10-22] MEDS: Albuterol/Ipratropium 3.0-0.5 MG/3 ML Neb Soln INH SCH ×3 (10:58→20:43)
[2020-10-22] MEDS: Dextrose 5%-Lactated Ringers 1,000 ML IV SCH ×2 (11:12→19:26)
[2020-10-22] MEDS: Pantoprazole 40 MG Vial IV SCH (11:12)
[2020-10-22] MEDS: Acetaminophen 325 MG Tab PO SCH ×3 (11:12→23:53)
[2020-10-22] MEDS: Metoclopramide 10 MG/2 ML SDV IV SCH ×3 (11:12→22:29)
[2020-10-22] MEDS: ceFAZolin 2 GM in Premix Bag 1 BAG IV SCH ×2 (14:10→22:33)
[2020-10-22] MEDS: oxyCODONE 5 MG Tab PO PRN ×2 (14:10→20:02)
[2020-10-22] MEDS: Topiramate 25 MG Tab PO SCH (20:42)
[2020-10-22] MEDS: SYMBICORT INH SCH (20:42)
[2020-10-22] MEDS: Metoprolol Succinate 50 MG Tab.ER PO SCH (20:43)
[2020-10-22] MEDS: Mirtazapine 15 MG Tab PO SCH (20:43)
[2020-10-23] MEDS: oxyCODONE 5 MG Tab PO PRN ×4 (03:26→22:15)
[2020-10-23] MEDS: Metoclopramide 10 MG/2 ML SDV IV SCH ×4 (03:27→22:08)
[2020-10-23] MEDS: Dextrose 5%-Lactated Ringers 1,000 ML IV SCH ×3 (04:19→15:28)
[2020-10-23] MEDS: Acetaminophen 325 MG Tab PO SCH ×4 (05:38→23:08)
[2020-10-23] MEDS: ceFAZolin 2 GM in Premix Bag 1 BAG IV SCH (05:39)
[2020-10-23] MEDS: Albuterol/Ipratropium 3.0-0.5 MG/3 ML Neb Soln INH SCH ×4 (07:34→22:04)
[2020-10-23] MEDS: SYMBICORT INH SCH ×2 (07:55→22:07)
[2020-10-23] MEDS: Topiramate 25 MG Tab PO SCH ×2 (08:27→21:57)
[2020-10-23] MEDS: Aspirin 81 MG Tab.EC PO SCH (08:27)
[2020-10-23] MEDS: Bisacodyl 5 MG Tab PO SCH ×2 (10:45→21:57)
[2020-10-23] MEDS: Docusate Sodium 100 MG Cap PO SCH ×2 (10:45→21:57)
[2020-10-23] MEDS: Pantoprazole 40 MG Vial IV SCH (12:59)
[2020-10-23] MEDS: Cyclobenzaprine 10 MG Tab PO PRN ×2 (14:56→23:08)
[2020-10-23] MEDS: Metoprolol Succinate 50 MG Tab.ER PO SCH (21:57)
[2020-10-23] MEDS: Mirtazapine 15 MG Tab PO SCH (21:57)
[2020-10-24] MEDS: Dextrose 5%-Lactated Ringers 1,000 ML IV SCH ×2 (02:15→15:24)
[2020-10-24] MEDS: oxyCODONE 5 MG Tab PO PRN ×4 (02:27→23:10)
[2020-10-24] MEDS: Metoclopramide 10 MG/2 ML SDV IV SCH ×4 (05:21→22:07)
[2020-10-24] MEDS: Acetaminophen 325 MG Tab PO SCH ×4 (05:24→23:10)
[2020-10-24] MEDS: Albuterol/Ipratropium 3.0-0.5 MG/3 ML Neb Soln INH SCH ×4 (07:27→20:41)
[2020-10-24] MEDS: SYMBICORT INH SCH ×2 (07:27→20:41)
[2020-10-24] MEDS: Pantoprazole 40 MG Tab.CR PO SCH (08:12)
[2020-10-24] MEDS: Aspirin 81 MG Tab.EC PO SCH (08:12)
[2020-10-24] MEDS: Topiramate 25 MG Tab PO SCH ×2 (08:12→20:42)
[2020-10-24] MEDS: Bisacodyl 5 MG Tab PO SCH ×3 (08:14→20:38)
[2020-10-24] MEDS: Docusate Sodium 100 MG Cap PO SCH ×2 (08:14→20:38)
--- NOTE | 2020-10-24 11:28 | PN ---
DATE OF SERVICE: 10/23/2020 The patient has been afebrile with stable vital signs. No major problems were noted overnight. She is having no significant dysphagia. Plan will be to move up to full liquid diet today, oral pain medication, some bowel stimulation. She will likely be ready for discharge home tomorrow. Gold Chavez MD /[id number]
--- NOTE | 2020-10-24 11:59 | PN ---
DATE OF SERVICE: 10/24/2020 The patient has had a T-max of 100.3. Has a little bit of a cough, pulmonary toilet. She also Mountain Dew which she normally takes quite a bit of at home and other caffeinated beverages as long as they are not highly carbonated. We will increase pulmonary toilet and activity level today. She is likely to be ready for discharge home tomorrow. Gold Chavez MD /[id number]
[2020-10-24] MEDS: Mirtazapine 15 MG Tab PO SCH (20:41)
[2020-10-24] MEDS: Metoprolol Succinate 50 MG Tab.ER PO SCH (20:42)
[2020-10-24] MEDS: Cyclobenzaprine 10 MG Tab PO PRN (23:11)
[2020-10-25] MEDS: Metoclopramide 10 MG/2 ML SDV IV SCH (03:05)
[2020-10-25] MEDS: oxyCODONE 5 MG Tab PO PRN (03:10)
[2020-10-25] MEDS: Acetaminophen 325 MG Tab PO SCH (06:01)
[2020-10-25 06:59] VITALS: BP 120/75; PULSE 96
[2020-10-25] MEDS: SYMBICORT INH SCH (07:20)
[2020-10-25] MEDS: Albuterol/Ipratropium 3.0-0.5 MG/3 ML Neb Soln INH SCH (07:20)
[2020-10-25] MEDS: Pantoprazole 40 MG Tab.CR PO SCH (08:10)
[2020-10-25] MEDS: Docusate Sodium 100 MG Cap PO SCH (08:11)
[2020-10-25] MEDS: Bisacodyl 5 MG Tab PO SCH (08:11)
[2020-10-25] MEDS: Aspirin 81 MG Tab.EC PO SCH (08:11)
[2020-10-25] MEDS: Topiramate 25 MG Tab PO SCH (08:11)
--- NOTE | 2020-10-26 10:48 | DISCH ---
ADMISSION DIAGNOSES: Gastroesophageal reflux disease refractory to medical management, degenerative joint disease, chronic obstructive pulmonary disease, emphysema, essential hypertension, irritable bowel syndrome, hypercholesterolemia, and tobacco abuse. DISCHARGE DIAGNOSES: 1. Laparoscopic Elsy fundoplication with repair of paraesophageal diaphragmatic hernia. 2. Excision of mediastinal lipoma. POSTOPERATIVE DIAGNOSES: 1. Large hiatal hernia with gastroesophageal reflux disease refractory to medical management. 2. Mediastinal lipoma. 3. Date of procedure: 10/22/2020. Surgeon: Gold hCavez MD. HISTORY: Marimar Diaz is a pleasant 59-year-old female with longstanding history of gastroesophageal reflux disease refractory to medical management. After preoperative evaluation and discussion of possible risks and possible complications, she wished to proceed with surgical procedure. HOSPITAL COURSE: Marimar had her surgery on 10/22/2020. She had no operative complications. On postoperative day #1, she was started on a full liquid diet, her IV rate was discontinued, and she was started on oral pain medication as well as bowel stimulation. On postoperative day #2, she was encouraged to increase her activity and use of incentive spirometer. Tolerating a full liquid diet. Vital signs have been stable. Oral intake 1716. Urine output 3550. She had 2 bowel movements prior discharge. On postoperative day #3, she was able to be discharged to home with no complications. PHYSICAL EXAMINATION: GENERAL: Marimar Diaz is a 59-year-old female. VITAL SIGNS: Height is 5 feet 3 inches, weight 138 pounds, BMI 24.4. TPR 97.9, 96, 18, blood pressure 120/75. HEENT: Negative. NECK: Supple. HEART: Regular rate and rhythm. LUNGS: Clear. She does have a harsh-sounding cough, shallow. ABDOMEN: Abdominal binder has been on. Sutures intact. Incision is healing well. EXTREMITIES: Without peripheral edema. DISPOSITION: Discharged to home. CONDITION: Stable and improving. FOLLOWUP: Appointment with Gold Chavez MD, on 11/03/2020 at 8:45 a.m. HOME PRESCRIPTION: Oxycodone 5 mg every 4 hours p.r.n. pain, #42. She is to resume home medications of Tylenol 650 mg p.o. q.6 hours, watch Tylenol intake that she does not exceed 4000 mg in 1 day; aspirin 81 mg p.o. daily; Flexeril 10 mg p.o. q.8 hours p.r.n.; metoprolol- XL 100 mg p.o. at bedtime; ProAir inhaler 1 to 2 puffs inhalation every 4 hours p.r.n. shortness of breath; Lipitor 80 mg p.o. at bedtime; Topamax 50 mg p.o. b.i.d.; Nicoderm 14 mg daily; Remeron 30 mg at bedtime; magnesium potassium 1 tablet daily; epinephrine 0.3 mL subcu p.r.n.; Voltaren 1% gel 1 applicator q.i.d.; Symbicort 80/4.5 mcg 2 inhalation b.i.d. APPOINTMENT: Followup appointment with Dr. Gold Chavez on 11/03/2020 at 8:45 a.m. DIET: Full liquid diet for 2 weeks. Drink 8 to 10 glasses of water a day. ACTIVITY: No lifting greater than 10 pounds for 2 weeks. Walk 6 times daily inside your home. DISCHARGE INSTRUCTIONS: Driving: Do not drive for 1 week and while on pain medication. Shower/bathing: May shower. Keep operative site clean and dry. Wear abdominal binder for 2 weeks and then p.r.n. Notify provider if any fever, increased pain, swelling, redness, drainage, nausea, vomiting. Use incentive spirometer 10 times every hour while awake for 1 week. Work slip given, to return to work on 11/05/2020 with no restrictions. /[id number]
--- NOTE | 2020-11-01 09:48 | OR ---
DATE OF PROCEDURE: 10/22/2020 SURGEON: Gold Chavez MD PREOPERATIVE DIAGNOSES: Gastroesophageal reflux disease associated with a large hiatal hernia and refractoriness to medical management. POSTOPERATIVE DIAGNOSES: 1. Large hiatal hernia with gastroesophageal reflux disease refractory to medical management. 2. Mediastinal lipoma. OPERATIVE PROCEDURE: Diagnostic laparoscopy with: 1. Laparoscopic Elsy fundoplication with repair of paraesophageal diaphragmatic hernia with mesh (35165). 2. Excision of mediastinal lipoma (88034). ANESTHESIA: General. OFFICE TECHNICIAN: Melissa Blood PA-C INDICATIONS FOR PROCEDURE: This is a 59-year-old female recently presenting with increased problems with ongoing heartburn and likely regurgitation that has been refractory to medical management. Upper endoscopy showed a large hiatal hernia with active gastroesophageal reflux disease. After discussion, she wished to proceed with a Elsy fundoplication. Potential risks of the procedure including bleeding, infection, injury to underlying viscera, problems with fundoplication such as dysphagia, gas bloat syndrome, disorders of gastric emptying rate as well as possible incomplete relief of reflux symptoms over time were all reviewed, and the patient wishes to proceed. DETAILS OF PROCEDURE: The patient was taken to the operating room and after general endotracheal anesthesia was induced was placed in a lithotomy position and the abdomen prepped and draped. At 15 cm inferior and 5 cm left of the xiphoid process, a transverse incision was made and the peritoneal cavity entered under direct vision with an Optiview trocar inflated to 15 mmHg pressure with CO2. Laparoscope was reinserted, no underlying trocar insertion site injuries were seen. Following this, 4 additional trocars were placed across the upper and mid abdomen and bilateral transversus abdominis plane blocks were then placed. The liver was retracted anteriorly. The patient as expected was noted to have a large hiatal hernia. The hernia contained some perigastric fat and gastric fundus in a plane anterior to the course of the esophagus. This was reduced at this point and the peritoneum overlying the anterior aspect of the esophagogastric junction initially incised and this was incised along the junction of the esophagus and right and left crura allowing dissection of the esophagus away from the crura on each side. A retroesophageal window was then created and additional dissection of the esophagus to the point where there was 4 to 5 cm length of intraabdominal esophagus was achieved. During the course of the dissection, a mediastinal lipoma was encountered and this was excised, so as to facilitate more adequate closure of the crura. The crural opening was not closed with some 0 Ethibond sutures reinforced with PTFE pledgets posterior to the esophagus. Because of the size of the defect, this was reinforced with a Phasix ST mesh, cut in a horseshoe-type configuration overlying the crural repair and then slightly onto the crura on each side where it was affixed bilaterally with some titanium tacking screws. The omentum was then divided away from the greater curvature. Beginning in the mid greater curvature, this dissection was continued proximally with a Harmonic scalpel across the short gastric vessels including the posterior and short gastric vessels. Care was taken to complete the dissection of the fundus away from the left crura for mobilization of that area of the stomach. This was then retrieved through the retroesophageal window. At that point, Anesthesia passed orally a guidewire across the esophagogastric junction into the stomach. Over this, a 54-Turkmen Savary dilator was placed. A 3- stitch 2 cm fundoplication was then accomplished with 0 Ethibond sutures reinforced with PTFE pledgets. Each of the sutures included a bite of the underlying esophagus in order to keep it in position. The fundoplication was then sutured to the overlying diaphragm with the same stitch fundoplication on both the right and left sides as well at this point, and the dilator was removed along with the guidewire. The fundoplication was inspected and found to be adequately floppy and no further problems were noted. Trocars were removed and peritoneal cavity deflated. Incisions were closed with 4-0 Vicryl skin stitch and the patient taken to the recovery room in satisfactory condition. Physician metal forger's assistant, Melissa Blood, played an essential role in assisting in this case, helping to position the patient, retract structures as needed as well as suturing and cutting sutures when indicated. Her presence improved patient safety and decreased the operative time. Gold Chavez MD /[id number]
== END 2020-10-25 09:45 | disposition home or self-care (01) | DRG 328 ==
LOC: JP.SDSSCHI 06:32 → JP.SDS 06:32 → UNDOADMIN 06:32 → JP.MS 09:00 → JP.SDSSCHI 09:00 → JP.MS 09:00 → EDSTATUS 09:30 → JP.SDS 10-23 08:59 → JP.MS 10-23 09:00 → UNDODISIN 10-25 09:45
PROVIDERS: ADMIT Surgery; ATTEND Surgery
PROC: 0DV44ZZ Restriction of Esophagogastric Junction, Percutaneous Endoscopic Approach (ICD-10-PCS; principal; 2020-10-22)
PROC: 0BUT4JZ Supplement Diaphragm with Synthetic Substitute, Percutaneous Endoscopic Approach (ICD-10-PCS; 2020-10-22)
PROC: 0JB63ZZ Excision of Chest Subcutaneous Tissue and Fascia, Percutaneous Approach (ICD-10-PCS; 2020-10-22)
DX: K21.9 Gastro-esophageal reflux disease without esophagitis (principal); M19.90 Unspecified osteoarthritis, unspecified site; J43.9 Emphysema, unspecified; I10 Essential (primary) hypertension; E78.00 Pure hypercholesterolemia, unspecified; F17.210 Nicotine dependence, cigarettes, uncomplicated; K44.9 Diaphragmatic hernia without obstruction or gangrene; D17.4 Benign lipomatous neoplasm of intrathoracic organs; R10.9 Unspecified abdominal pain; M54.41 Lumbago with sciatica, right side; G89.4 Chronic pain syndrome; M85.80 Other specified disorders of bone density and structure, unspecified site; Z98.890 Other specified postprocedural states; Z98.51 Tubal ligation status; Z90.49 Acquired absence of other specified parts of digestive tract; Z79.82 Long term (current) use of aspirin; Z79.899 Other long term (current) drug therapy; Z91.030 Bee allergy status; Z88.8 Allergy status to other drugs, medicaments and biological substances; Z91.048 Other nonmedicinal substance allergy status
CPT/HCPCS: 88304; 93005; 93010; 94640; 94762; A9270-GY; C1713; C1781; C9113; J0171; J0330; J0690; J1100; J1170; J2405; J2704; J2710; J2765; J2795; J3010; J3490; J7120; J7121; J7620-GY

== ENCOUNTER 2021-05-23 15:44 | Emergency (ER) | payer MEDICAID ==
[2021-05-23] MEDS ORDERED: Aspirin 81 MG Tab.Chew PO ONE (15:55)
--- NOTE | 2021-05-23 16:00 | EDM.PDOC ---
<Dory Geiger - Last Filed: 05/23/21 17:35> ED HPI GENERAL MEDICAL PROBLEM - General Chief Complaint: Chest Pain Stated Complaint: CHEST PAIN LAST NIGHT, HEADACHES Time Seen by Provider: 05/23/21 15:56 Source of Information: Reports: Patient History Limitations: Reports: No Limitations - History of Present Illness INITIAL COMMENTS - FREE TEXT/NARRATIVE: pt was at the clinic being seen by Loco Vallejo and she described chest pain like some one sitting on her chest. she did have a cardiac angiogram about 7-8 years. ago and it was neg. pt did have fractured ribs about 3 weeks ago after a fall. This pain is different. Onset: Other ( started last nite. ) Duration: Hour(s): Location: Reports: Chest Quality: Reports: Other (heaviness. ) - Related Data Allergies Allergy/AdvReac Type Severity Reaction Status Date / Time venom-honey bee Allergy Severe Facial Verified 05/23/21 15:53 [bee venom (honey bee)] Swelling meperidine HCl [From Demerol] Allergy Unknown Hives Verified 05/23/21 15:53 adhesive tape Allergy Rash Verified 05/23/21 15:53 Home Meds: Home Meds Albuterol [Proair HFA] 1 - 2 puff INH Q4H PRN 11/28/13 [History] Cyclobenzaprine [Flexeril] 10 mg PO BEDTIME PRN 07/25/14 [History] EPINEPHrine [Epinephrine] 0.3 ml IM ONETIME PRN 02/24/15 [History] atorvaSTATin [Lipitor] 80 mg PO BEDTIME 07/18/15 [History] Diclofenac Sodium [Voltaren 1% Gel] 1 applic TP QID 07/29/15 [History] Aspirin [Halfprin] 81 mg PO DAILY 03/30/20 [History] Budesonide/Formoterol [Symbicort 80-4.5 MCG] 2 puff INH BID PRN 03/30/20 [History] Nicotine [Nicoderm CQ] 14 mg TD DAILY 03/30/20 [History] Topiramate [Topamax] 50 mg PO BID 03/30/20 [History] Mirtazapine [Remeron] 30 mg PO BEDTIME 04/15/20 [History] Magnesium/Potassium 1 tab PO DAILY 09/21/20 [History] Metoprolol Succinate [Toprol XL 100mg] 100 mg PO BEDTIME 09/21/20 [History] SUMAtriptan [Imitrex] 50 mg PO ASDIRECTED 05/23/21 [History] Past Medical History HEENT History: Reports: Cataract, Impaired Vision Cardiovascular History: Reports: Afib, Heart Murmur, High Cholesterol, Hypertension Respiratory History: Reports: Asthma, COPD, Pneumonia, Recurrent Gastrointestinal History: Reports: Chronic Diarrhea, GERD, Irritable Bowel Syndrome, Other (See Below) Genitourinary History: Reports: UTI, Recurrent 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: Reports: Fibroids, Musculoskeletal History: Reports: Arthritis, Back Pain, Chronic, Fibromyalgia, Osteoporosis Neurological History: Reports: Headaches, Chronic Psychiatric History: Reports: Anxiety, Depression, Mood Swings Dermatologic History: Reports: Benign Melanoma - Infectious Disease History Infectious Disease History: Reports: Chicken Pox, Shingles - Past Surgical History Head Surgeries/Procedures: Reports: None HEENT Surgical History: Reports: None Cardiovascular Surgical History: Reports: Other (See Below) Other Cardiovascular Surgeries/Procedures: Angiogram 2014 Respiratory Surgical History: Reports: None GI Surgical History: Reports: Appendectomy, Cholecystectomy, Colonoscopy, Hernia, Abdominal, Other (See Below) Other GI Surgeries/Procedures: Abdominal mass under right rib 2015 removed; 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 Female Surgical History: Reports: Breast Biopsy, Salpingo-Oophorectomy, Tubal Ligation Neurological Surgical History: Reports: None Musculoskeletal Surgical History: Reports: None Dermatological Surgical History: Reports: Skin Biopsy Social & Family History - Family History Family Medical History: No Pertinent Family History - Caffeine Use Caffeine Use: Reports: Coffee, Soda Other Caffeine Use: 2 bottles pop daily and 2 cups coffee ED ROS GENERAL - Review of Systems Review Of Systems: See Below HEENT: Reports: No Symptoms Respiratory: Reports: Shortness of Breath Cardiovascular: Reports: Chest Pain Endocrine: Reports: No Symptoms GI/Abdominal: Reports: No Symptoms : Reports: No Symptoms Musculoskeletal: Reports: No Symptoms Skin: Reports: No Symptoms ED EXAM, GENERAL - Physical Exam Free Text/Narrative:: pt arrived with chest pain in the center of her chest , she did have pain in her left shoulder and left arm. Exam Limited By: No Limitations General Appearance: Alert, Anxious, Moderate Distress Ears: Normal TMs Nose: Normal Inspection Throat/Mouth: Normal Inspection Head: Atraumatic Neck: Normal Inspection Respiratory/Chest: No Respiratory Distress, Other (pt is quite tender in the lower costosternal joints. ) Cardiovascular: Regular Rate, Rhythm, Tachycardia GI/Abdominal: Soft, Tender, Other (pt does have slight tenderness in the wepigastric area/ ) (Female) Exam: Deferred Rectal (Female) Exam: Deferred Back Exam: Normal Inspection Extremities: Normal Inspection Neurological: Alert, Oriented, Normal Cognition #1 Interpretation Rhythm: NSR [place]: Normal QRS: Normal EKG Interpretation Comments: no acute changes. Course - Re-Assessments/Exams Free Text/Narrative Re-Assessment/Exam: 05/23/21 17:36 pt had a normal trop. She did not seem to get good relief with the nitroglycerin. She was given torodol 30 mg iv and is much more comfortable. A second trop was ordered. Departure - Departure Disposition: Home, Self-Care 01 Condition: Fair Clinical Impression: Chest wall pain, History of fractured rib Referrals: Betsy Chun PA-C [Primary Care Provider] - Forms: ED Department Discharge Care Plan Goals: heat to ant chest possibly not work any more this week and try again next week, appt with [facility] in 4-5 days if persistent discomfort consider a cardiac stress test. toodol 10mg q6h for the next 3 days. <Denice Wright - Last Filed: 05/23/21 18:46> ED EXAM, GENERAL - Physical Exam Exam: See Below Course - Vital Signs Last Recorded V/S: Last Vital Signs Temp 36.5 C 05/23/21 15:58 Pulse 82 05/23/21 17:08 Resp 12 05/23/21 17:08 BP 127/77 05/23/21 17:08 Pulse Ox 96 05/23/21 17:08 - Orders/Labs/Meds Orders: Active Orders 24 hr Category Date Time Status Nitroglycerin [Nitrostat] Med 05/23/21 15:55 Active 0.4 mg SL Q5M PRN Medication Orders Nitroglycerin (Nitroglycerin 0.4 Mg Tab.Sl) 0.4 mg SL Q5M PRN PRN Reason: Chest Pain Last Admin: 05/23/21 16:33 Dose: 0.4 mg Documented by: Admin: 05/23/21 16:01 Dose: 0.4 mg Documented by: AN Labs: Laboratory Tests 05/23/21 05/23/21 05/23/21 Range/Units 15:57 15:57 17:08 WBC 9.1 (4.5-11.0) K/uL RBC 4.97 (3.30-5.50) M/uL Hgb 14.9 (12.0-15.0) g/dL Hct 45.0 (36.0-48.0) % MCV 91 (80-98) fL MCH 30 (27-31) pg MCHC 33 (32-36) % Plt Count 339 (150-400) K/uL Neut % (Auto) 59.5 (36-66) % Lymph % (Auto) 28.8 (24-44) % [place] % (Auto) 8.6 H (2-6) % Eos % (Auto) 2.3 (2-4) % Baso % (Auto) 0.8 (0-1) % Sodium 142 (140-148) mmol/L Potassium 3.2 L (3.6-5.2) mmol/L Chloride 102 (100-108) mmol/L Carbon Dioxide 29 (21-32) mmol/L Anion Gap 14.2 H (5.0-14.0) mmol/L BUN 9 (7-18) mg/dL Creatinine 0.9 (0.6-1.0) mg/dL Est Cr Clr Drug Dosing 57.38 mL/min Estimated GFR (MDRD) > 60 (>60) Glucose 93 (74-106) mg/dL Calcium 9.1 (8.5-10.1) mg/dL Total Bilirubin 0.4 (0.2-1.0) mg/dL AST 24 (15-37) U/L ALT 27 (12-78) U/L Alkaline Phosphatase 186 H D (46-116) U/L Troponin I < 0.017 (0.000-0.056) ng/mL Total Protein 7.2 (6.4-8.2) g/dL Albumin 3.2 L (3.4-5.0) g/dL Globulin 4.0 H (2.3-3.5) g/dL Albumin/Globulin Ratio 0.8 L (1.2-2.2) Urine Color Yellow (YELLOW) Urine Appearance Clear (CLEAR) Urine pH 6.5 (5.0-8.0) Ur Specific [place] 1.010 (1.008-1.030) Urine Protein Negative (NEGATIVE) mg/dL Urine Glucose (UA) Negative (NEGATIVE) mg/dL Urine Ketones Negative (NEGATIVE) mg/dL Urine Occult Blood Negative (NEGATIVE) Urine Nitrite Negative (NEGATIVE) Urine Bilirubin Negative (NEGATIVE) Urine Urobilinogen 0.2 (0.2-1.0) EU/dL Ur Leukocyte Esterase Trace H (NEGATIVE) Urine RBC Not seen (0-5) Urine WBC 0-5 (0-5) Ur Epithelial Cells Few Amorphous Sediment Not seen Urine Bacteria Moderate Urine Mucus Not seen 05/23/21 Range/Units 17:25 WBC (4.5-11.0) K/uL RBC (3.30-5.50) M/uL Hgb (12.0-15.0) g/dL Hct (36.0-48.0) % MCV (80-98) fL MCH (27-31) pg MCHC (32-36) % Plt Count (150-400) K/uL Neut % (Auto) (36-66) % Lymph % (Auto) (24-44) % [place] % (Auto) (2-6) % Eos % (Auto) (2-4) % Baso % (Auto) (0-1) % Sodium (140-148) mmol/L Potassium (3.6-5.2) mmol/L Chloride (100-108) mmol/L Carbon Dioxide (21-32) mmol/L Anion Gap (5.0-14.0) mmol/L BUN (7-18) mg/dL Creatinine (0.6-1.0) mg/dL Est Cr Clr Drug Dosing mL/min Estimated GFR (MDRD) (>60) Glucose (74-106) mg/dL Calcium (8.5-10.1) mg/dL Total Bilirubin (0.2-1.0) mg/dL AST (15-37) U/L ALT (12-78) U/L Alkaline Phosphatase (46-116) U/L Troponin I < 0.017 (0.000-0.056) ng/mL Total Protein (6.4-8.2) g/dL Albumin (3.4-5.0) g/dL Globulin (2.3-3.5) g/dL Albumin/Globulin Ratio (1.2-2.2) Urine Color (YELLOW) Urine Appearance (CLEAR) Urine pH (5.0-8.0) Ur Specific [place] (1.008-1.030) Urine Protein (NEGATIVE) mg/dL Urine Glucose (UA) (NEGATIVE) mg/dL Urine Ketones (NEGATIVE) mg/dL Urine Occult Blood (NEGATIVE) Urine Nitrite (NEGATIVE) Urine Bilirubin (NEGATIVE) Urine Urobilinogen (0.2-1.0) EU/dL Ur Leukocyte Esterase (NEGATIVE) Urine RBC (0-5) Urine WBC (0-5) Ur Epithelial Cells Amorphous Sediment Urine Bacteria Urine Mucus Meds: Medications Generic Name Dose Route Start Last Admin Trade Name Freq PRN Reason Stop Dose Admin Nitroglycerin 0.4 mg 05/23/21 15:55 05/23/21 16:33 Nitroglycerin 0.4 Mg Tab.Sl SL 0.4 mg Q5M PRN Administration Chest Pain Discontinued Medications Generic Name Dose Route Start Last Admin Trade Name Freq PRN Reason Stop Dose Admin Aspirin 324 mg 05/23/21 15:55 05/23/21 16:00 Aspirin 81 Mg Tab.Chew PO 05/23/21 15:56 324 mg ONETIME ONE Administration Ketorolac Tromethamine 30 mg 05/23/21 17:00 05/23/21 17:08 Ketorolac 30 Mg/Ml Sdv IVPUSH 05/23/21 17:01 30 mg ONETIME ONE Administration - Re-Assessments/Exams Free Text/Narrative Re-Assessment/Exam: 05/23/21 18:45 second trop was negative Departure - Departure Time of Disposition: 18:40 Condition: Fair Sepsis Event Note (ED) - Focused Exam Vital Signs: Vital Signs Temp Pulse Resp BP BP Pulse Ox 05/23/21 17:08 82 12 127/77 96 05/23/21 16:33 129/88 05/23/21 16:15 99 19 156/87 H 96 05/23/21 16:01 163/97 H 05/23/21 15:58 36.5 C 92 12 168/108 H 97 05/23/21 15:53 36.5 C 92 12 168/108 H 97 05/23/21 15:52 101 H 14 163/97 H 97
[2021-05-23] MEDS: Nitroglycerin 0.4 MG Tab.SL SL PRN ×2 (16:01→16:33)
--- NOTE | 2021-05-23 16:39 | CR ---
CHEST: Portable 05/23/2021 at 4:09 PM CLINICAL HISTORY:Chest pain COMPARISON:CT April 27 FINDINGS: Heart size and pulmonary vascularity are normal. Lung stout are hyperaerated but clear. Impression: Emphysematous changes No acute cardiopulmonary process
[2021-05-23] MEDS ORDERED: Ketorolac 30 MG/ML SDV IVPUSH ONE (17:00)
[2021-05-23 17:09] VITALS: BP 127/77; PULSE 82
== END 2021-05-23 19:11 | disposition home or self-care (01) ==
LOC: JP.ED 15:44
DX: R07.89 Other chest pain (principal); I48.91 Unspecified atrial fibrillation; E78.00 Pure hypercholesterolemia, unspecified; I10 Essential (primary) hypertension; J44.9 Chronic obstructive pulmonary disease, unspecified; M19.90 Unspecified osteoarthritis, unspecified site; Z91.030 Bee allergy status; Z88.5 Allergy status to narcotic agent; Z91.048 Other nonmedicinal substance allergy status; Z79.82 Long term (current) use of aspirin; Z79.899 Other long term (current) drug therapy
CPT/HCPCS: 36415; 71045; 80053; 81001; 84484; 85025; 96374; 99285; A9270; J1885

== ENCOUNTER 2021-07-13 13:41 | Emergency (ER) | payer MEDICAID, OTHER ==
[2021-07-13] MEDS ORDERED: Adenosine 6 MG/2 ML SDV ONE ×2 (13:59)
[2021-07-13] MEDS ORDERED: Aspirin 81 MG Tab.Chew PO ONE (14:10)
[2021-07-13] MEDS ORDERED: Adenosine 6 MG/2 ML SDV IVPUSH ONE ×2 (14:37→15:16)
--- NOTE | 2021-07-13 14:42 | EDM.PDOC ---
ED HPI GENERAL MEDICAL PROBLEM - General Chief Complaint: Chest Pain Stated Complaint: CHEST PAIN Time Seen by Provider: 07/13/21 13:45 Source of Information: Reports: Patient History Limitations: Reports: No Limitations - History of Present Illness INITIAL COMMENTS - FREE TEXT/NARRATIVE: This is a 60-year-old female presents with concerns of palpitations and chest pain. She reports history of what sounds to be SVT, prior ministration of adenosine abated this rhythm. She had a coronary angiogram 78 years ago that was normal. She was seen approximately 2 weeks ago for some chest discomfort. Ultimately she had a Holter monitor placed. Since this time is it intermittent palpitations and chest discomfort. She now returns to the ED because she was doing dishes when she had sudden onset of palpitations and chest pain. She continues to have this now. She feels somewhat dizzy. She is having 9 out of 10 discomfort in her chest. She took 2 nitros prior to presentation which did not help. - Related Data Allergies Allergy/AdvReac Type Severity Reaction Status Date / Time venom-honey bee Allergy Severe Facial Verified 07/13/21 13:50 [bee venom (honey bee)] Swelling meperidine HCl [From Demerol] Allergy Unknown Hives Verified 07/13/21 13:50 adhesive tape Allergy Rash Verified 07/13/21 13:50 Home Meds: Home Meds Albuterol [Proair HFA] 1 - 2 puff INH Q4H PRN 11/28/13 [History] Cyclobenzaprine [Flexeril] 10 mg PO BEDTIME PRN 07/25/14 [History] EPINEPHrine [Epinephrine] 0.3 ml IM ONETIME PRN 02/24/15 [History] atorvaSTATin [Lipitor] 80 mg PO BEDTIME 07/18/15 [History] Diclofenac Sodium [Voltaren 1% Gel] 1 applic TP QID 07/29/15 [History] Aspirin [Halfprin] 81 mg PO DAILY 03/30/20 [History] Budesonide/Formoterol [Symbicort 80-4.5 MCG] 2 puff INH BID PRN 03/30/20 [History] Nicotine [Nicoderm CQ] 14 mg TD DAILY 03/30/20 [History] Topiramate [Topamax] 50 mg PO BID 03/30/20 [History] Mirtazapine [Remeron] 30 mg PO BEDTIME 04/15/20 [History] Magnesium/Potassium 1 tab PO DAILY 09/21/20 [History] Metoprolol Succinate [Toprol XL 100mg] 100 mg PO BEDTIME 09/21/20 [History] SUMAtriptan [Imitrex] 50 mg PO ASDIRECTED 05/23/21 [History] Doxepin [SINEquan] 10 mg PO BEDTIME 07/13/21 [History] Evolocumab [Repatha Syringe] 140 mg SQ Q14D 07/13/21 [History] Nitroglycerin 0.4 mg SL ASDIRECTED 07/13/21 [History] Past Medical History HEENT History: Reports: Cataract, Impaired Vision Cardiovascular History: Reports: Afib, Heart Murmur, High Cholesterol, Hypertension Respiratory History: Reports: Asthma, COPD, Pneumonia, Recurrent, Other (See Below) Other Respiratory History: nodules in lungs, gets annual scans to watch them Gastrointestinal History: Reports: Chronic Diarrhea, GERD, Irritable Bowel Syndrome Genitourinary History: Reports: UTI, Recurrent 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[employer]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 [employer]LYST History: Reports: Fibroids, Musculoskeletal History: Reports: Arthritis, Back Pain, Chronic, Fibromyalgia, Osteoporosis Neurological History: Reports: Headaches, Chronic Psychiatric History: Reports: Anxiety, Depression, Mood Swings Hematologic History: Reports: Anemia Dermatologic History: Reports: Benign Melanoma - Infectious Disease History Infectious Disease History: Reports: Chicken Pox, Shingles - Past Surgical History Head Surgeries/Procedures: Reports: None HEENT Surgical History: Reports: None Cardiovascular Surgical History: Reports: Other (See Below) Other Cardiovascular Surgeries/Procedures: Angiogram 2014 Respiratory Surgical History: Reports: None GI Surgical History: Reports: Appendectomy, Cholecystectomy, Colonoscopy, Hernia, Abdominal, Elsy Fundoplication, Other (See Below) Other GI Surgeries/Procedures: Abdominal mass under right rib 2015 removed but back again; 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 Female Surgical History: Reports: Breast Biopsy, Salpingo-Oophorectomy, Tubal Ligation Neurological Surgical History: Reports: None Musculoskeletal Surgical History: Reports: None Oncologic Surgical History: Reports: Biopsy of Breast Dermatological Surgical History: Reports: Skin Biopsy Social & Family History - Family History Family Medical History: No Pertinent Family History - Caffeine Use Caffeine Use: Reports: Coffee, Soda Other Caffeine Use: 2 bottles pop daily and 2 cups coffee ED ROS GENERAL - Review of Systems Review Of Systems: See Below Constitutional: Reports: No Symptoms HEENT: Reports: No Symptoms Respiratory: Reports: Shortness of Breath Cardiovascular: Reports: Chest Pain, Palpitations Endocrine: Reports: No Symptoms GI/Abdominal: Reports: No Symptoms : Reports: No Symptoms Musculoskeletal: Reports: No Symptoms Skin: Reports: No Symptoms Neurological: Reports: No Symptoms Psychiatric: Reports: No Symptoms Hematologic/Lymphatic: Reports: No Symptoms Immunologic: Reports: No Symptoms ED EXAM, GENERAL - Physical Exam Exam: See Below Exam Limited By: No Limitations General Appearance: Moderate Distress Nose: Normal Inspection Throat/Mouth: Normal Inspection Head: Atraumatic Neck: Normal Inspection Respiratory/Chest: Lungs Clear Cardiovascular: No Murmur, Tachycardia GI/Abdominal: Soft, Non-Tender Back Exam: Normal Inspection Extremities: Normal Inspection Neurological: Alert, Oriented Psychiatric: Normal Affect, Normal Mood Skin Exam: Warm, Dry #1 Interpretation Time: 13:41 Rhythm: Other (Narrow complex tachycardia with rate of 166. No discernible P waves. Consistent with SVT. Anterolateral T wave depression is noted. No other ischemic change.) #2 Interpretation Time: 13:58 Rhythm: NSR (Normal sinus rhythm with atrial ectopy. Rate is 80. When compared to prior tracing ST depression is improved. No other ischemic change.) #3 Interpretation Time: 14:00 Rhythm: Other (Sinus tachycardia. Rate is 100. When compared to recent prior tracings atrial ectopy has resolved, anterolateral ST depression has resolved. No ischemic change.) Course - Vital Signs Last Recorded V/S: Last Vital Signs Temp 36.8 C 07/13/21 14:11 Pulse 85 07/13/21 15:51 Resp 14 07/13/21 15:51 BP 121/80 07/13/21 15:51 Pulse Ox 99 07/13/21 15:51 - Orders/Labs/Meds Orders: Active Orders 24 hr Category Date Time Status Magnesium Sulfate/Water [Magnesium Sulfate in Water 2 Med 07/13/21 15:15 Active GM/50 ML] 2 gm Premix Bag 1 bag IV ONETIME EKG 12 Lead [EK] Routine Ther 07/13/21 14:54 Ordered EKG 12 Lead [EK] Routine Ther 07/13/21 14:55 Ordered EKG 12 Lead [EK] Routine Ther 07/13/21 14:55 Ordered Medication Orders Magnesium Sulfate 2 gm/ Premix 50 mls @ 25 mls/hr IV ONETIME ONE Stop: 07/13/21 17:14 Last Admin: 07/13/21 15:49 Dose: 25 mls/hr Documented by: KD Labs: Laboratory Tests 07/13/21 07/13/21 Range/Units 14:10 14:10 WBC 10.0 (4.5-11.0) K/uL RBC 4.81 (3.30-5.50) M/uL Hgb 14.6 (12.0-15.0) g/dL Hct 42.8 (36.0-48.0) % MCV 89 (80-98) fL MCH 30 (27-31) pg MCHC 34 (32-36) % Plt Count 338 (150-400) K/uL Sodium 140 (140-148) mmol/L Potassium 3.0 L (3.6-5.2) mmol/L Chloride 104 (100-108) mmol/L Carbon Dioxide 22 (21-32) mmol/L Anion Gap 17.0 H (5.0-14.0) mmol/L BUN 6 L (7-18) mg/dL Creatinine 1.0 (0.6-1.0) mg/dL Est Cr Clr Drug Dosing 51.18 mL/min Estimated GFR (MDRD) 57 L (>60) Glucose 165 H (74-106) mg/dL Calcium 8.8 (8.5-10.1) mg/dL Magnesium 1.5 L (1.8-2.4) mg/dL Total Bilirubin 0.7 D (0.2-1.0) mg/dL AST 21 (15-37) U/L ALT 19 (12-78) U/L Alkaline Phosphatase 136 H (46-116) U/L Troponin I < 0.017 (0.000-0.056) ng/mL Total Protein 6.3 L (6.4-8.2) g/dL Albumin 3.5 (3.4-5.0) g/dL Globulin 2.8 (2.3-3.5) g/dL Albumin/Globulin Ratio 1.2 (1.2-2.2) Meds: Medications Generic Name Dose Route Start Last Admin Trade Name Freq PRN Reason Stop Dose Admin Magnesium Sulfate 2 gm/ Premix 50 mls @ 25 mls/hr 07/13/21 15:15 07/13/21 15:49 IV 07/13/21 17:14 25 mls/hr ONETIME ONE Administration Discontinued Medications Generic Name Dose Route Start Last Admin Trade Name John PRN Reason Stop Dose Admin Adenosine Confirm 07/13/21 13:59 Adenosine 6 Mg/2 Ml Sdv Administered 07/13/21 14:00 Dose 6 mg .ROUTE .STK-MED ONE Adenosine Confirm 07/13/21 13:59 Adenosine 6 Mg/2 Ml Sdv Administered 07/13/21 14:00 Dose 12 mg .ROUTE .STK-MED ONE Adenosine 6 mg 07/13/21 14:37 07/13/21 13:57 Adenosine 6 Mg/2 Ml Sdv IVPUSH 07/13/21 14:38 6 mg NOW ONE Administration Adenosine 6 mg 07/13/21 15:16 Adenosine 6 Mg/2 Ml Sdv IVPUSH 07/13/21 15:17 NOW ONE Aspirin 324 mg 07/13/21 14:10 07/13/21 14:28 Aspirin 81 Mg Tab.Chew PO 07/13/21 14:11 324 mg ONETIME ONE Administration Metoprolol Succinate 25 mg 07/13/21 16:08 Metoprolol Succinate 25 Mg Tab.Er PO 07/13/21 16:09 ONETIME ONE - Re-Assessments/Exams Free Text/Narrative Re-Assessment/Exam: 60-year-old female who presents with concerns of chest pain and palpitations. Initial exam she is found to be tachycardic with heart rates in the 160s to 180s. Borderline hypotension with systolic blood pressure in the low 90s. She was having chest discomfort and feeling dizzy. EKG obtained and shows apparent SVT. She appeared quite unstable. We therefore proceeded with applying patches for cardioversion. Did a trial of adenosine administration which did convert her to sinus rhythm. Initially had some ST depression on her arrival EKG, but I suspect this may have been rate related as it resolved on repeat when she converted to sinus rhythm. This can be further followed up at next cardiology visit. Chest discomfort resolved after resolution of her SVT. Screening labs including troponin were obtained and overall reassuring, we did replace her magnesium. I have increased her metoprolol to 150 mg of succinate daily. She was given an extra dose of this in the ED. She remained stable after several hours of monitoring on cardiac telemetry. She is safe for discharge, discussed return precautions. Place referral for her to be seen by her pegger next time he is in town. 07/13/21 16:18 Departure - Departure Time of Disposition: 16:20 Disposition: Home, Self-Care 01 Clinical Impression: Paroxysmal supraventricular tachycardia Instructions: Supraventricular Tachycardia, Adult Referrals: PCP,None [Primary Care Provider] - Forms: ED Department Discharge Additional Instructions: As discussed, you had a recurrent episode of a rhythm called SVT. While uncomfortable this rhythm is generally considered not dangerous at least in the short-term. The remainder of your work-up was reassuring. We would like you to increase your metoprolol succinate to 150 mg daily to help suppress the SVT episodes. We placed a referral for you to be seen by your pegger. Return to the emergency room for any recurrent and persistent symptoms. Thank you for trusting us to care for you today. Critical Care Note - Critical Care Note Total Time (mins): 33 Comments: 33 minutes of critical care time were spent diagnosing and treating unstable rapid heart rate with associated hypotension and potential for rapid clinical decline. Sepsis Event Note (ED) - Focused Exam Vital Signs: Vital Signs Temp Pulse Resp BP Pulse Ox 07/13/21 15:51 85 14 121/80 99 07/13/21 15:02 88 11 L 112/80 99 07/13/21 14:11 36.8 C 165 H 18 91/72 98 07/13/21 13:49 36.8 C 165 H 18 91/72 98 - My Orders Last 24 Hours: My Active Orders 07/13/21 14:54 EKG 12 Lead [EK] Routine 07/13/21 14:55 EKG 12 Lead [EK] Routine EKG 12 Lead [EK] Routine 07/13/21 15:15 Magnesium Sulfate/Water [Magnesium Sulfate in Water 2 GM/50 ML] 2 gm Premix Bag 1 bag IV ONETIME - Assessment/Plan Last 24 Hours: My Active Orders 07/13/21 14:54 EKG 12 Lead [EK] Routine 07/13/21 14:55 EKG 12 Lead [EK] Routine EKG 12 Lead [EK] Routine 07/13/21 15:15 Magnesium Sulfate/Water [Magnesium Sulfate in Water 2 GM/50 ML] 2 gm Premix Bag 1 bag IV ONETIME
--- NOTE | 2021-07-13 15:08 | CRLCR ---
For Patients: As a result of the Century Cures Act, medical imaging exams and procedure reports are released immediately into your electronic medical record. You may view this report before your referring provider. If you have questions, please contact your health care provider. INDICATION: Chest pain. TECHNIQUE: Chest 1 view(s) COMPARISON: Chest radiograph dated 05/23/2021. FINDINGS: ekg monitor device projects over the right upper cardiac silhouette. Cardiomediastinal silhouette and pulmonary vasculature are normal. No focal consolidation. No pleural effusion, no definite pneumothorax. No acute chest wall abnormality. IMPRESSION: No acute cardiopulmonary process. Dictated by Kai Guardado MD @ 07/13/2021 3:06:18 PM (Electronically Signed)
[2021-07-13] MEDS ORDERED: Magnesium Sulfate/Water 2 GM in Premix Bag 1 BAG IV ONE (15:15)
[2021-07-13] MEDS ORDERED: Metoprolol Succinate 25 MG Tab.ER PO ONE (16:08)
[2021-07-13 17:37] VITALS: BP 109/72; PULSE 67
[2021-07-13] MEDS ORDERED: Sucralfate Suspension 1 GM/10 ML Cup PO ONE (17:48)
== END 2021-07-13 18:01 | disposition home or self-care (01) ==
LOC: JP.ED 13:41
DX: I47.1 Supraventricular tachycardia (principal); I48.91 Unspecified atrial fibrillation; E78.00 Pure hypercholesterolemia, unspecified; I10 Essential (primary) hypertension; J44.9 Chronic obstructive pulmonary disease, unspecified; M19.90 Unspecified osteoarthritis, unspecified site; Z91.030 Bee allergy status; Z88.5 Allergy status to narcotic agent; Z91.048 Other nonmedicinal substance allergy status; Z79.82 Long term (current) use of aspirin; Z79.899 Other long term (current) drug therapy
CPT/HCPCS: 36415; 71045; 80053; 83735; 84484; 85027; 93005; 99285; A9270; J0153; J3475

== ENCOUNTER 2022-01-28 19:20 | Emergency (ER) | payer MEDICAID ==
[2022-01-28 19:48] VITALS: BP 156/64; PULSE 100
[2022-01-28] MEDS ORDERED: Sodium Chloride 0.9% 10 ML Syringe FLUSH PRN (20:17)
[2022-01-28] MEDS ORDERED: Ketorolac 30 MG/ML SDV IVPUSH ONE (20:17)
[2022-01-28] MEDS: Ondansetron 4 MG/2 ML SDV IVPUSH ONE ×2 (20:30→20:31)
[2022-01-28] MEDS ORDERED: Sodium Chloride 0.9% 1,000 ML IV SCH (20:30)
== END 2022-01-28 22:10 | disposition home or self-care (01) ==
LOC: JP.ED 19:20
DX: N39.0 Urinary tract infection, site not specified (principal); M54.9 Dorsalgia, unspecified; J45.909 Unspecified asthma, uncomplicated; E78.00 Pure hypercholesterolemia, unspecified; I10 Essential (primary) hypertension; Z90.49 Acquired absence of other specified parts of digestive tract; Z91.030 Bee allergy status; Z88.6 Allergy status to analgesic agent
CPT/HCPCS: 36415; 74176; 80053; 81001; 85025; 86140; 96374; 96375; 99283; 99284-25; J1885; J2405; J3490; J7030

== ENCOUNTER 2023-04-05 12:43 | Emergency (ER) | payer MEDICAID ==
[2023-04-05] MEDS ORDERED: Sodium Chloride 0.9% 1,000 ML IV STA (13:37)
[2023-04-05] MEDS ORDERED: Sodium Chloride 0.9% 10 ML Syringe FLUSH PRN (13:37)
[2023-04-05 13:52] LABS: BASOPHILS ABSOLUTE AUTO 0.08 K/uL (0.00-0.10); BASOPHILS PERCENT AUTO 1.1 % (0.1-1.3); EOSINOPHILS ABSOLUTE AUTO 0.29 K/uL (0.00-0.40); EOSINOPHILS PERCENT AUTO 3.8 % (0.0-5.4); HEMATOCRIT 44.8 % (34.3-46.0); HEMOGLOBIN 15.1 g/dL (11.2-15.5); IMMATURE GRAN PERCENT AUTO 0.3 % (0.0-0.7); LYMPHOCYTES ABSOLUTE AUTO 2.16 K/uL (0.8-3.3); LYMPHOCYTES PERCENT AUTO 28.5 % (11.4-47.7); MEAN CORPUSCULAR HEMOGLOBIN 30.9 pg (31.6-35.5); MEAN CORPUSCULAR HGB CONC 33.7 g/dL (31.6-35.5); MEAN CORPUSCULAR VOLUME 91.6 fL (81.4-99.0); MONOCYTES ABSOLUTE AUTO 0.69 K/uL (0.20-0.90); MONOCYTES PERCENT AUTO 9.1 % (3.3-12.6); NEUTROPHILS ABSOLUTE AUTO 4.35 K/uL (1.0-7.6); NEUTROPHILS PERCENT AUTO 57.2 % (40.0-78.1); PLATELET COUNT,PLT 272 K/uL (130-375); RED BLOOD CELL COUNT 4.89 M/uL (3.77-5.24); WHITE BLOOD CELL COUNT,WBC 7.6 K/uL (3.2-11.0)
[2023-04-05 13:55] LABS: IMMATURE GRAN ABSOLUTE AUTO 0.02 K/uL (0.00-0.23)
[2023-04-05] MEDS ORDERED: Sodium Chloride 0.9% 10 ML Syringe FLUSH ONE (14:08)
[2023-04-05] MEDS ORDERED: Iopamidol 612 MG/ML 100 ML Bottle IV ONE (14:08)
[2023-04-05] MEDS ORDERED: Sodium Chloride 0.9% 50 ML IV ONE (14:08)
[2023-04-05 14:26] LABS: A/G RATIO 0.8 (1.2-2.2); ALANINE AMINOTRANSFERASE,ALT 26 U/L (12-78); ALBUMIN 3.2 g/dL (3.4-5.0); ALKALINE PHOSPHATASE 112 U/L (46-116); ANION GAP 6.2 mmol/L (5.0-14.0); ASPARTATE AMNIOTRANSFERASE,AST 25 U/L (15-37); BILIRUBIN TOTAL 0.5 mg/dL (0.2-1.0); BLOOD UREA NITROGEN,BUN 6 mg/dL (7-18); CALCIUM 8.9 mg/dL (8.5-10.1); CARBON DIOXIDE,CO2 29 mmol/L (21-32); CHLORIDE,CL 105 mmol/L (100-108); CREATININE 0.9 mg/dL (0.6-1.0); EST CRCL DRUG DOSING (CG) 51.29 mL/min; ESTIMATED GFR 73 mL/min (>60); GLUCOSE RANDOM 63 mg/dL (74-106); POTASSIUM,K 4.2 mmol/L (3.6-5.2); PROTEIN TOTAL,TP 7.1 g/dL (6.4-8.2); SODIUM,NA 140 mmol/L (140-148)
[2023-04-05 15:28] VITALS: BP 145/90; PULSE 68
== END 2023-04-05 15:57 | disposition home or self-care (01) ==
LOC: JP.ED 12:43
DX: K59.04 Chronic idiopathic constipation (principal); J44.9 Chronic obstructive pulmonary disease, unspecified; K21.9 Gastro-esophageal reflux disease without esophagitis; Z72.0 Tobacco use; Z91.030 Bee allergy status; Z91.048 Other nonmedicinal substance allergy status; Z88.5 Allergy status to narcotic agent; Z79.82 Long term (current) use of aspirin; Z79.899 Other long term (current) drug therapy
CPT/HCPCS: 36415; 74177; 80053; 83605; 83690; 84484; 85025; 99284; J3490; J7030; Q9967

== ENCOUNTER 2023-05-29 11:48 | Emergency (ER) | payer MEDICAID ==
[2023-05-29 13:24] LABS: BASOPHILS ABSOLUTE AUTO 0.07 K/uL (0.00-0.10); BASOPHILS PERCENT AUTO 0.8 % (0.1-1.3); EOSINOPHILS ABSOLUTE AUTO 0.26 K/uL (0.00-0.40); EOSINOPHILS PERCENT AUTO 3.1 % (0.0-5.4); HEMATOCRIT 43.4 % (34.3-46.0); HEMOGLOBIN 15.1 g/dL (11.2-15.5); IMMATURE GRAN PERCENT AUTO 0.2 % (0.0-0.7); MEAN CORPUSCULAR HEMOGLOBIN 31.6 pg (31.6-35.5); MEAN CORPUSCULAR HGB CONC 34.8 g/dL (31.6-35.5); MEAN CORPUSCULAR VOLUME 90.8 fL (81.4-99.0); MONOCYTES ABSOLUTE AUTO 0.66 K/uL (0.20-0.90); MONOCYTES PERCENT AUTO 7.7 % (3.3-12.6); NEUTROPHILS ABSOLUTE AUTO 5.21 K/uL (1.0-7.6); NEUTROPHILS PERCENT AUTO 61.2 % (40.0-78.1); PLATELET COUNT,PLT 275 K/uL (130-375); RED BLOOD CELL COUNT 4.78 M/uL (3.77-5.24); WHITE BLOOD CELL COUNT,WBC 8.5 K/uL (3.2-11.0)
[2023-05-29 13:26] LABS: IMMATURE GRAN ABSOLUTE AUTO 0.02 K/uL (0.00-0.23)
[2023-05-29 13:46] LABS: ANION GAP 6.2 mmol/L (5.0-14.0); CALCIUM 9.3 mg/dL (8.5-10.1); CREATININE 0.8 mg/dL (0.6-1.0); EST CRCL DRUG DOSING (CG) 58.17 mL/min; POTASSIUM,K 4.1 mmol/L (3.6-5.2); TROPONIN I HIGH SENSITIVITY 4.3 pg/mL (<=60.3)
[2023-05-29 13:59] VITALS: BP 146/95; PULSE 73
== END 2023-05-29 14:21 | disposition home or self-care (01) ==
LOC: JP.ED 11:48
DX: R07.89 Other chest pain (principal); I10 Essential (primary) hypertension; I48.91 Unspecified atrial fibrillation; E78.00 Pure hypercholesterolemia, unspecified; J44.9 Chronic obstructive pulmonary disease, unspecified; M19.90 Unspecified osteoarthritis, unspecified site; F17.210 Nicotine dependence, cigarettes, uncomplicated; Z79.899 Other long term (current) drug therapy; Z79.82 Long term (current) use of aspirin; Z91.030 Bee allergy status; Z88.5 Allergy status to narcotic agent; Z91.048 Other nonmedicinal substance allergy status; Z88.8 Allergy status to other drugs, medicaments and biological substances
CPT/HCPCS: 36415; 80048; 84484; 85025; 99284

== ENCOUNTER 2024-01-22 20:01 | Emergency (ER) | payer MEDICAID ==
[2024-01-22 20:32] VITALS: BP 166/101; PULSE 78
[2024-01-22] MEDS: Ketorolac 30 MG/ML SDV IM ONE (20:53)
== END 2024-01-22 21:44 | disposition home or self-care (01) ==
LOC: JP.ED 20:01
DX: R10.31 Right lower quadrant pain (principal); I10 Essential (primary) hypertension; E78.00 Pure hypercholesterolemia, unspecified; J44.9 Chronic obstructive pulmonary disease, unspecified; F17.210 Nicotine dependence, cigarettes, uncomplicated; Z91.030 Bee allergy status; Z91.048 Other nonmedicinal substance allergy status; Z86.16 Personal history of COVID-19; Z88.6 Allergy status to analgesic agent; Z88.8 Allergy status to other drugs, medicaments and biological substances; Z79.82 Long term (current) use of aspirin; Z79.51 Long term (current) use of inhaled steroids; Z90.49 Acquired absence of other specified parts of digestive tract
CPT/HCPCS: 74176; 96372; 99284; J1885

== ENCOUNTER 2024-04-20 14:09 | Emergency (ER) | payer MEDICAID ==
[2024-04-20 14:39] VITALS: BP 164/99; PULSE 88
== END 2024-04-20 15:24 | disposition home or self-care (01) ==
LOC: JP.ED 14:09
DX: G56.02 Carpal tunnel syndrome, left upper limb (principal); G62.9 Polyneuropathy, unspecified; F17.210 Nicotine dependence, cigarettes, uncomplicated; E78.00 Pure hypercholesterolemia, unspecified; I10 Essential (primary) hypertension; J44.9 Chronic obstructive pulmonary disease, unspecified; M19.90 Unspecified osteoarthritis, unspecified site; Z79.82 Long term (current) use of aspirin; Z79.899 Other long term (current) drug therapy; Z88.6 Allergy status to analgesic agent; Z91.048 Other nonmedicinal substance allergy status; Z88.8 Allergy status to other drugs, medicaments and biological substances; Z91.030 Bee allergy status
CPT/HCPCS: 29125; 99283-25

== ENCOUNTER 2024-06-14 20:46 | Emergency (ER) | payer MEDICAID ==
[2024-06-15] MEDS: Acetaminophen 500 MG Tab PO ONE (00:59)
[2024-06-15 01:03] VITALS: BP 135/101; PULSE 76
== END 2024-06-15 01:03 | disposition home or self-care (01) ==
LOC: JP.ED 20:46
DX: M17.11 Unilateral primary osteoarthritis, right knee (principal); I10 Essential (primary) hypertension; E78.00 Pure hypercholesterolemia, unspecified; K21.9 Gastro-esophageal reflux disease without esophagitis; J44.9 Chronic obstructive pulmonary disease, unspecified; Z90.49 Acquired absence of other specified parts of digestive tract; F17.210 Nicotine dependence, cigarettes, uncomplicated; Z91.030 Bee allergy status; Z91.048 Other nonmedicinal substance allergy status; Z88.6 Allergy status to analgesic agent; Z79.82 Long term (current) use of aspirin; Z79.899 Other long term (current) drug therapy
CPT/HCPCS: 99283; A9270